=== PATIENT | female | born 1970 | race Caucasian/White ===

== ENCOUNTER → 2016-09-17 | Outpatient (CLI) | payer BC ==
--- NOTE | 2016-09-18 06:42 | US ---
EXAMINATION TYPE: US pelvic complete DATE OF EXAM: 09/17/2016 COMPARISON: NONE CLINICAL HISTORY: R10.2 Pelvic pain. Pain during pelvic exam TECHNIQUE: Transabdominal (TA) Date of LMP: over a year ago. EXAM MEASUREMENTS: Uterus: 8.4 x 4.4 x 5.3 cm Endometrial Stripe: 0.4 cm Right Ovary: 2.8 x 1.5 x 2.7 cm Left Ovary: 3.9 x 2.4 x 2.2 cm 1. Uterus: Anteverted wnl 2. Endometrium: wnl 3. Right Ovary: wnl 4. Left Ovary: wnl 5. Bilateral Adnexa: wnl 6. Posterior cul-de-sac: no free fluid IMPRESSION: NORMAL PELVIC ULTRASOUND.
== END | disposition home or self-care (01) ==
LOC: RADUSWWP 16:01
PROVIDERS: ATTEND General Practice
DX: R10.2 Pelvic and perineal pain (principal)
CPT/HCPCS: 76856

== ENCOUNTER → 2018-08-23 | Outpatient (CLI) | payer OTHER ==
--- NOTE | 2018-08-24 10:46 | MM ---
Reason for exam: screening (asymptomatic). Last mammogram was performed 4 years and 3 months ago. Physical Findings: A clinical breast exam by your physician is recommended on an annual basis and results should be correlated with mammographic findings. MG Screening Mammo w CAD Bilateral CC and MLO view(s) were taken. Prior study comparison: June 05, 2014, bilateral MG screening mammo w CAD. There are scattered fibroglandular densities. There is a stable right anterior depth upper outer quadrant mass and left upper outer quadrant focal asymmetry. There is a benign right oil cyst. No suspicious abnormality. No significant changes when compared with prior studies. ASSESSMENT: Benign, BI-RAD 2 RECOMMENDATION: Routine screening mammogram of both breasts in 1 year.
== END | disposition home or self-care (01) ==
LOC: RADMAMWWP 07:32
PROVIDERS: ATTEND General Practice
DX: Z12.31 Encounter for screening mammogram for malignant neoplasm of breast (principal)
CPT/HCPCS: 77067

== ENCOUNTER 2018-09-13 09:55 | Day surgery (SDC) | payer OTHER ==
[2018-09-11 11:09] VITALS: BMI 33.7
[~2018-09-13 09:55] MED LIST: LACTATED RINGERS 1,000 ML IV SCH; LIDOCAINE 1% 20 ML VIAL (10MG/ML) FOR IV START INTRADERMA PRN
[2018-09-13 10:19] VITALS: TEMP 98.7
[2018-09-13] MEDS ORDERED: LIDOCAINE 1% INJ 10MG/ML (20 ML MDV) ONE (10:46)
[2018-09-13] MEDS ORDERED: PROPOFOL 10 MG/ML 20 ML VIAL IV ONE (10:46)
--- NOTE | 2018-09-13 11:10 | P.PCN ---
Date of Procedure: 09/13/18 Procedure(s) Performed: BRIEF HISTORY: Patient is a 48-year-old pleasant white female, scheduled for an elective colonoscopy as a part of screening for colorectal neoplasia. PROCEDURE PERFORMED: Colonoscopy with snare polypectomy. PREOPERATIVE DIAGNOSIS: Screening for colon cancer. IV sedation per Anesthesia. PROCEDURE: After informed consent was obtained, the patient, was brought into the endoscopy unit. IV sedation was administered by Anesthesia under continuous monitoring. Digital rectal examination was normal. Initially the Olympus CF-160 flexible video colonoscope was then inserted in the rectum, gradually advanced into the cecum without any difficulty. Careful examination was performed as the scope was gradually being withdrawn. Ileocecal valve and the appendiceal orifice were visualized and appeared normal. Prep was excellent. Mucosa of the cecum, ascending colon, transverse colon, appeared normal. In the descending colon there was a 1.5 cm broad-based polyp that was removed by snare polypectomy. Rest of the descending colon, sigmoid colon, and rectum appeared normal. Scat tered sigmoid diverticulosis. Retroflexion was performed in the rectum and no lesions were seen. The patient tolerated the procedure well. IMPRESSION: 1.5 cm broad-based ascending colon polyp status post polypectomy Scattered sigmoid diverticulosis RECOMMENDATIONS: Findings of this examination were discussed with the patient as well as her family. She was advised to follow with the biopsy results. If the biopsy shows an adenoma, she can have a repeat colonoscopy in 3 years.
[2018-09-13 11:19] VITALS: BP 95/65; PULSE 73; RESP 14
== END 2018-09-13 11:41 | disposition home or self-care (01) ==
LOC: ORWHC2ENDO 09:55
PROVIDERS: ATTEND Internal Medicine Gastroenterology
DX: Z12.11 Encounter for screening for malignant neoplasm of colon (principal); K63.5 Polyp of colon; K57.30 Diverticulosis of large intestine without perforation or abscess without bleeding; F17.210 Nicotine dependence, cigarettes, uncomplicated
CPT/HCPCS: 45385; 88305; 81025; J2001; J2704

== ENCOUNTER 2019-10-22 18:42 | Inpatient (IN) | payer OTHER ==
[2019-10-22] MEDS ORDERED: SODIUM CHLORIDE 0.9% 1,000 ML IV STA (19:24)
[2019-10-22] MEDS ORDERED: ONDANSETRON 4 MG/2 ML VIAL IVP STA (19:38)
[2019-10-22] MEDS ORDERED: KETOROLAC 15 MG/ML 1 ML VIAL IVP STA (19:38)
--- NOTE | 2019-10-22 19:39 | ED ---
Abdominal Pain HPI - General Source: patient Mode of arrival: ambulatory Limitations: no limitations <Geraldo Nassar - Last Filed: 10/22/19 21:53> <Leslie Perera - Last Filed: 10/26/19 00:28> - General Chief Complaint: Abdominal Pain Stated Complaint: Lower abd pain Time Seen by Provider: 10/22/19 18:59 - History of Present Illness Initial Comments: Patient 21-year-old female presenting to emergency with chief complaint of abdominal pain. Patient reports one week ago she was diagnosed with a urinary tract infection and started Cipro. Patient states she'll for she is taken 7 doses of the ciprofloxacin. Patient reports she continues to have suprapubic abdominal pain and is now noticed gross hematuria over the last few days. She denies dysuria, increased urgency or frequency. Denies any hematochezia or melena. States she does have history of kidney stones but this does not feel like it. Does report nausea, no vomiting. Denies night sweats fevers or chills. No previous history of abdominal surgeries. (Geraldo Nassar) - Related Data Home Medications Medication Instructions Recorded Confirmed Ciprofloxacin HCl [Cipro] 500 mg PO BID 10/22/19 10/22/19 Allergies Allergy/AdvReac Type Severity Reaction Status Date / Time No Known Allergies Allergy Verified 10/22/19 22:40 Review of Systems ROS Other: All systems not noted in ROS Statement are negative. <Geraldo Nassar - Last Filed: 10/22/19 21:53> ROS Other: All systems not noted in ROS Statement are negative. <Leslie Perera - Last Filed: 10/26/19 00:28> ROS Statement: Those systems with pertinent positive or pertinent negative responses have been documented in the HPI. Past Medical History Past Medical History: No Reported History Additional Past Medical History / Comment(s): loose stools after eating History of Any Multi-Drug Resistant Organisms: None Reported Past Surgical History: No Surgical Hx Reported Additional Past Surgical History / Comment(s): surgery for ectopic Past Anesthesia/Blood Transfusion Reactions: No Reported Reaction Past Psychological History: No Psychological Hx Reported Smoking Status: Current every day smoker Past Alcohol Use History: Rare Past Drug Use History: None Reported - Past Family History Mother Family Medical History: Cancer Brother(s) Family Medical History: Cancer Additional Family Medical History / Comment(s): brain cancer <Geraldo Nassar - Last Filed: 10/22/19 21:53> General Exam Limitations: no limitations General appearance: alert, in no apparent distress, obese Head exam: Present: atraumatic, normocephalic, normal inspection Eye exam: Present: normal appearance, PERRL, EOMI Pupils: Present: normal accommodation ENT exam: Present: normal exam, normal oropharynx, mucous membranes moist, TM's normal bilaterally, normal external ear exam Neck exam: Present: normal inspection, full ROM. Absent: tenderness Respiratory exam: Present: normal lung sounds bilaterally. Absent: respiratory distress, wheezes, rales Cardiovascular Exam: Present: regular rate, normal rhythm, normal heart sounds GI/Abdominal exam: Present: soft, tenderness (Left and midline suprapubic tenderness). Absent: distended, guarding, rebound, rigid Extremities exam: Present: normal inspection, full ROM, normal capillary refill. Absent: tenderness Back exam: Present: normal inspection, full ROM. Absent: tenderness, CVA tenderness (R), CVA tenderness (L) Neurological exam: Present: alert, oriented X3 Psychiatric exam: Present: normal affect, normal mood Skin exam: Present: warm, dry, intact, normal color <Geraldo Nassar - Last Filed: 10/22/19 21:53> Course Vital Signs 10/22/19 10/22/19 18:44 22:15 Temperature 98.3 F 99.2 F Pulse Rate 101 H 84 Respiratory 18 17 Rate Blood Pressure 157/81 137/88 O2 Sat by Pulse 98 95 Oximetry Medical Decision Making - Lab Data Result diagrams: 10/22/19 19:42 10/22/19 19:42 <Geraldo Nassar - Last Filed: 10/22/19 21:53> - Lab Data Result diagrams: 10/25/19 06:19 10/25/19 06:19 <Leslie Perera - Last Filed: 10/26/19 00:28> - Medical Decision Making Patient 49-year-old female presenting to the emergency department with a chief c omplaint of abdominal pain. On exam she has no CVA tenderness with a 7 left lower quadrant abdominal pain. UA does show hematuria but no signs of a UTI. Patient has been taking ciprofloxacin is currently on day 7. Patient has leukocytosis of 16.5 K. CMP unremarkable. UA showed elevated red blood cells and moderate amounts of blood but no signs of urinary tract infection. Urine culture pending. CT of abdomen and pelvis reveals diverticulitis in the mid to distal sigmoid colon. There is also moderate to severe inflammation with an intramural abscess. Patient will be started on Flagyl and Zosyn. Patient will be admitted for further medical management. Her pain is controlled. Nothing by mouth. Case discussed with Dr Kidd. Admitting physician is General surgery on consult (Geraldo Nassar) I was available for consultation in the emergency department. The history and physical exam were done by the midlevel provider. I was consulted for this patients care. I reviewed the case with the midlevel provider and based on their presentation of the patient, I agree with the assessment, medical decision making and plan of care as documented. Patient was signed out to me, not Dr. Kidd. I discussed case with Dr. Harden who agreed to admit the patient. Chart was dictated using [facility] dictation software. Attempts were made to correct any dictation errors however some typographical errors may persist. Patient was seen during a national state of emergency due to the Covid-19 pandemic. (Leslie Perera) - Lab Data Lab Results 10/22/19 10/22/19 10/22/19 Range/Units 19:42 19:42 19:42 WBC 16.7 H (3.8-10.6) k/uL RBC 4.75 (3.80-5.40) m/uL Hgb 14.4 (11.4-16.0) gm/dL Hct 44.0 (34.0-46.0) % MCV 92.7 (80.0-100.0) fL MCH 30.3 (25.0-35.0) pg MCHC 32.7 (31.0-37.0) g/dL RDW 12.6 (11.5-15.5) % Plt Count 344 (150-450) k/uL Neutrophils % 81 % Lymphocytes % 9 % Monocytes % 7 % Eosinophils % 1 % Basophils % 0 % Neutrophils # 13.6 H (1.3-7.7) k/uL Lymphocytes # 1.6 (1.0-4.8) k/uL Monocytes # 1.2 H (0-1.0) k/uL Eosinophils # 0.2 (0-0.7) k/uL Basophils # 0.1 (0-0.2) k/uL Sodium 139 (137-145) mmol/L Potassium 4.5 (3.5-5.1) mmol/L Chloride 107 (98-107) mmol/L Carbon Dioxide 21 L (22-30) mmol/L Anion Gap 11 mmol/L BUN 19 H (7-17) mg/dL Creatinine 0.61 (0.52-1.04) mg/dL Est GFR (CKD-EPI)AfAm >90 (>60 ml/min/1.73 sqM) Est GFR (CKD-EPI)NonAf >90 (>60 ml/min/1.73 sqM) Glucose 115 H (74-99) mg/dL Calcium 9.3 (8.4-10.2) mg/dL Total Bilirubin 0.7 (0.2-1.3) mg/dL AST 40 H (14-36) U/L ALT 51 H (4-34) U/L Alkaline Phosphatase 116 (38-126) U/L Total Protein 7.1 (6.3-8.2) g/dL Albumin 4.0 (3.5-5.0) g/dL Amylase 46 (30-110) U/L Lipase 55 (23-300) U/L Urine Color Yellow Urine Appearance Cloudy H (Clear) Urine pH 6.5 (5.0-8.0) Ur Specific Logan 1.019 (1.001-1.035) Urine Protein Negative (Negative) Urine Glucose (UA) Negative (Negative) Urine Ketones Negative (Negative) Urine Blood Moderate H (Negative) Urine Nitrite Negative (Negative) Urine Bilirubin Negative (Negative) Urine Urobilinogen 2.0 (<2.0) mg/dL Ur Leukocyte Esterase Small H (Negative) Urine RBC >182 H (0-5) /hpf Urine WBC 14 H (0-5) /hpf Ur Squamous Epith Cells 1 (0-4) /hpf Urine Bacteria Rare H (None) /hpf Urine Mucus Few H (None) /hpf Urine Yeast (Budding) Few H (None) /hpf Urine HCG, Qual (Not Detectd) 10/22/19 Range/Units 19:42 WBC (3.8-10.6) k/uL RBC (3.80-5.40) m/uL Hgb (11.4-16.0) gm/dL Hct (34.0-46.0) % MCV (80.0-100.0) fL MCH (25.0-35.0) pg MCHC (31.0-37.0) g/dL RDW (11.5-15.5) % Plt Count (150-450) k/uL Neutrophils % % Lymphocytes % % Monocytes % % Eosinophils % % Basophils % % Neutrophils # (1.3-7.7) k/uL Lymphocytes # (1.0-4.8) k/uL Monocytes # (0-1.0) k/uL Eosinophils # (0-0.7) k/uL Basophils # (0-0.2) k/uL Sodium (137-145) mmol/L Potassium (3.5-5.1) mmol/L Chloride (98-107) mmol/L Carbon Dioxide (22-30) mmol/L Anion Gap mmol/L BUN (7-17) mg/dL Creatinine (0.52-1.04) mg/dL Est GFR (CKD-EPI)AfAm (>60 ml/min/1.73 sqM) Est GFR (CKD-EPI)NonAf (>60 ml/min/1.73 sqM) Glucose (74-99) mg/dL Calcium (8.4-10.2) mg/dL Total Bilirubin (0.2-1.3) mg/dL AST (14-36) U/L ALT (4-34) U/L Alkaline Phosphatase (38-126) U/L Total Protein (6.3-8.2) g/dL Albumin (3.5-5.0) g/dL Amylase (30-110) U/L Lipase (23-300) U/L Urine Color Urine Appearance (Clear) Urine pH (5.0-8.0) Ur Specific Logan (1.001-1.035) Urine Protein (Negative) Urine Glucose (UA) (Negative) Urine Ketones (Negative) Urine Blood (Negative) Urine Nitrite (Negative) Urine Bilirubin (Negative) Urine Urobilinogen (<2.0) mg/dL Ur Leukocyte Esterase (Negative) Urine RBC (0-5) /hpf Urine WBC (0-5) /hpf Ur Squamous Epith Cells (0-4) /hpf Urine Bacteria (None) /hpf Urine Mucus (None) /hpf Urine Yeast (Budding) (None) /hpf Urine HCG, Qual Not Detected (Not Detectd) Disposition Is patient prescribed a controlled substance at d/c from ED?: No Time of Disposition: 21:58 <Geraldo Nassar - Last Filed: 10/22/19 21:53> <Leslie Perera - Last Filed: 10/26/19 00:28> Clinical Impression: Diverticulitis of intestine with abscess, Hematuria, Abdominal pain Disposition: ADMITTED IP TO THIS HOSP Condition: Good
[2019-10-22 19:58] LABS: Appearance,Urine Cloudy (Clear); Bacteria,Urine Rare /hpf; Bilirubin,Urine Negative (Negative); Blood,Urine Moderate (Negative); Budding Yeast,Urine Few /hpf; Color,Urine Yellow; Glucose,Urine (UA) Negative (Negative); Ketones,Urine Negative (Negative); Leukocyte Esterase,Urine Small (Negative); Mucus,Urine Few /hpf; Nitrite,Urine Negative (Negative); PH, Urine 6.5 (5.0-8.0); Protein,Urine Negative (Negative); RBC,Urine >182 /hpf (0-5); Specific Gravity,Urine 1.019 (1.001-1.035); Squamous Epithelial Cell,Urine 1 /hpf (0-4); WBC,Urine 14 /hpf (0-5)
[2019-10-22 20:01] LABS: ALT 51 U/L (4-34); AST 40 U/L (14-36); African American GFR (CKD) >90 (>60 ml/min/1.73 sqM); Alkaline Phosphatase 116 U/L (38-126); Amylase 46 U/L (30-110); Anion Gap 11 mmol/L; Blood Urea Nitrogen 19 mg/dL (7-17); Calcium 9.3 mg/dL (8.4-10.2); Carbon Dioxide 21 mmol/L (22-30); Chloride 107 mmol/L (98-107); Glucose 115 mg/dL (74-99); Non-African American GFR(CKD) >90 (>60 ml/min/1.73 sqM); Potassium 4.5 mmol/L (3.5-5.1); Sodium 139 mmol/L (137-145); Total Bilirubin 0.7 mg/dL (0.2-1.3); Total Protein 7.1 g/dL (6.3-8.2)
[2019-10-22 20:04] LABS: Basophils # (A) 0.1 k/uL (0-0.2); Basophils % (A) 0 %; Eosinophils # (A) 0.2 k/uL (0-0.7); Eosinophils % (A) 1 %; HGB 14.4 gm/dL (11.4-16.0); Lymphocytes # (A) 1.6 k/uL (1.0-4.8); Lymphocytes % (A) 9 %; MCH 30.3 pg (25.0-35.0); MCHC 32.7 g/dL (31.0-37.0); MCV 92.7 fL (80.0-100.0); Mean Platelet Volume 8.2; Monocytes # (A) 1.2 k/uL (0-1.0); Monocytes % (A) 7 %; Neutrophils # (A) 13.6 k/uL (1.3-7.7); Neutrophils % (A) 81 %; Platelet Count 344 k/uL (150-450); RBC 4.75 m/uL (3.80-5.40); RDW 12.6 % (11.5-15.5); WBC 16.7 k/uL (3.8-10.6)
--- NOTE | 2019-10-22 21:31 | CT ---
EXAMINATION TYPE: CT abdomen pelvis w con DATE OF EXAM: 10/22/2019 COMPARISON: NONE HISTORY: 49-year-old female left lower quadrant and Pelvic pain TECHNIQUE: Contiguous axial scanning of the abdomen and pelvis following administration of 100 ml Iso amita 300 IV contrast. Delayed images through the kidneys and coronal/sagittal reconstructions perform ed. CT DLP: 1660.9 mGycm Automated exposure control for dose reduction was used. FINDINGS: Heart normal size without pericardial effusion. Liver enlarged at 22.1 cm. Suspect underlying mild fatty infiltration. There is a 1.6 cm calculus in the gallbladder neck region and gallbladder hydrops and 5.4 cm wide. No surrounding inflammation at this time. Portal venous system is patent. No biliary ductal dilatation. Right adrenal gland, right kidney, spleen, and pancreas appear within normal limits. There is a round 2.1 cm low-density homogeneous nodule within the left adrenal gland, suspected adren al adenoma. There is a 1.4 cm calculus in the pelvis of the left kidney with mild fullness of the left renal meaghan ecting system. No dilated small bowel, free fluid, or free air. No mesenteric or retroperitoneal lymphadenopathy. Normal appendix. Sigmoid diverticulosis. Moderate to severe wall thickening and moderate surrounding mesenteric fat st randing along the mid to distal sigmoid. There is intramural fluid along the right lateral wall of th e distal sigmoid measuring 3.1 x 1.7 cm on axial image 83. No free air is identified. Mild free fluid in the left adnexa just underneath the inflamed segment of sigmoid colon. Bladder is collapsed. Uterus anteverted. Right ovary is visualized. Left ovary obscured by adjacent b owel. No pelvic lymphadenopathy. Bones: Osteitis pubis. Mild degenerative change of the hips. No osseous destructive process. IMPRESSION: 1. SIGMOID DIVERTICULOSIS WITH EXAM POSITIVE FOR ACUTE DIVERTICULITIS ALONG THE MID TO DISTAL SIGMOID . THERE IS MODERATE TO SEVERE INFLAMMATION AND A 3.1 X 1.7 CM INTRAMURAL ABSCESS NOTED. SOME LEFT ADN EXAL FREE FLUID JUST ADJACENT LIKELY REACTIVE TO THE INFLAMMATION. DIRECT VISUALIZATION RECOMMENDED A FTER SUCCESSFUL TREATMENT. 2. HYDROPIC GALLBLADDER WITH A 1.6 CM GALLBLADDER NECK CALCULUS. HYDROPIC CHANGES MAY RELATE TO FASTI NG STATE. BUT GIVEN THE STONE AT THE NECK OF THE GALLBLADDER, PATIENT SHOULD BE FOLLOWED TO EXCLUDE E CASS DEVELOPING ACUTE CHOLECYSTITIS. 3. A 1.4 CM CALCULUS IN THE LEFT RENAL PELVIS MAY RESULT IN AN IMPENDING UPJ OBSTRUCTION. 4. A 2.1 CM ROUND HOMOGENEOUS MASS WITHIN THE LEFT ADRENAL GLAND, SUSPECTED ADRENAL ADENOMA. SIX-LIAM H FOLLOW-UP ADRENAL MASS PROTOCOL CT RECOMMENDED TO FURTHER EVALUATE. 5. HEPATOMEGALY AT 22.1 CM.
[2019-10-22] MEDS ORDERED: PIPERACILLIN-TAZOBACTAM 3.375 GM in SODIUM CHLORIDE 0.9% 100 ML IVPB STA (21:53)
[2019-10-22] MEDS ORDERED: metroNIDAZOLE-NS PMX 500 MG in SALINE 1 100ML.BAG IVPB STA (21:53)
[2019-10-22] MEDS ORDERED: NALOXONE 0.4 MG/ML 1 ML VIAL IV PRN (21:59)
[2019-10-22] MEDS ORDERED: LORazepam 2 MG/ML INJ IV PRN (21:59)
[2019-10-22] MEDS ORDERED: HYDROmorphone 1 MG/ML 1 ML SYRINGE IVP PRN (21:59)
[2019-10-22 22:38] LABS: Partial Thromboplastin Time 28.6 sec (22.0-30.0); Prothrombin Time 10.3 sec (9.0-12.0)
[2019-10-22] MEDS: SODIUM CHLORIDE 0.9% 1,000 ML IV SCH (23:35)
--- NOTE | 2019-10-23 03:15 | P.HPIM ---
History of Present Illness H&P Date: 10/22/19 Chief Complaint: abd pain 49-year-old female with no significant past medical history Patient comes in with two-week history of abdominal pain off and on she described it as sharp colicky abdominal pain over the lower part of her abdomen gets worse with movement has been going on and getting worse over the past 2 weeks she just her PCP who prescribed her some Cipro for possible UTI she still taking it. She reports some chills but denies any nausea vomiting denies any d iarrhea denies any GI bleeding denies any vaginal discharge. She is tolerating by mouth intake. However today she felt that the pain is getting worse she got back from work slept for 2 hours pain awaken her and decided to come to the hospital for evaluation as despite taking the antibiotics she wasn't getting any relief or improvement. She denies any recent traveling or sick contacts denies any similar symptoms in the past. In the ED she was found to have leukocytosis, CT of the abdomen revealed sigmoid diverticulosis with acute diverticulitis and 3 x 1.5 cm abscess formation patient also found to have hydropic gallbladder with 1.6 cm gallbladder neck calculus, also she was found to have 1.4 cm stone in the left renal pelvis and adrenal adenoma suspected recommending follow-up Review of Systems Pertinent positives as noted in HPI. All other systems were reviewed and are negative Past Medical History Past Medical History: No Reported History Additional Past Medical History / Comment(s): loose stools after eating History of Any Multi-Drug Resistant Organisms: None Reported Past Surgical History: No Surgical Hx Reported Additional Past Surgical History / Comment(s): surgery for ectopic Past Anesthesia/Blood Transfusion Reactions: No Reported Reaction Past Psychological History: No Psychological Hx Reported Smoking Status: Current every day smoker Past Alcohol Use History: Rare Additional Past Alcohol Use History / Comment(s): smoker for 25 years 1 ppd Past Drug Use History: None Reported - Past Family History Mother Family Medical History: Cancer Additional Family Medical History / Comment(s): stomach Brother(s) Family Medical History: Cancer Additional Family Medical History / Comment(s): brain cancer Father Family Medical History: CVA/TIA Medications and Allergies Home Medications Medication Instructions Recorded Confirmed Type Ciprofloxacin HCl [Cipro] 500 mg PO BID 10/22/19 10/22/19 History Allergies Allergy/AdvReac Type Severity Reaction Status Date / Time No Known Allergies Allergy Verified 10/22/19 22:40 Physical Exam Vitals: Vital Signs Temp Pulse Pulse Resp BP BP Pulse Ox 10/22/19 23:00 98.1 F 86 16 160/91 97 10/22/19 22:15 99.2 F 84 17 137/88 95 10/22/19 18:44 98.3 F 101 H 18 157/81 98 Intake and Output 10/22/19 10/22/19 10/23/19 14:59 22:59 06:59 Other: Weight 102.965 kg 102.965 kg Constitutional: No acute distress, conversant, pleasant Eyes: Anicteric sclerae, moist conjunctiva, Pupils equal round reactive to light ENMT: NC/AT Oropharynx clear, no erythema, exudates Neck: Supple, FROM, no masses, or JVD No carotid bruits No thyromegaly Lungs: Clear to auscultation Clear to percussion Normal respiratory effort, no accessory muscle use Cardiovascular: Heart regular in rate and rhythm, No murmurs, gallops, or rubs No peripheral edema Abdominal: Soft Slight tenderness to deep palpation over the left lower quadrant, no guarding, rebound or rigidity Abdomen moving with respiration Normoactive bowel sounds No hepatomegaly, No splenomegaly No palpable mass No abdominal wall hernia noted Skin: Normal temperature, tone, texture, turgor No induration No subcutaneous nodules No rash, lesions No ulcers Extremities: No digital cyanosis No clubbing Pedal pulses intact and symmetrical Radial pulses intact and symmetrical No calf tenderness Psychiatric: Alert and oriented to person, place and time Appropriate affect fair judgement Neuro Muscles Strength 5/5 in all 4 extremities Sensation to light touch grossly present throughout Cranial nerves II-XII grossly intact No focal sensory deficits Lymphatics: no palpable cervical or supraclavicular , or inguinal lymph nodes Results CBC & Chem 7: 10/22/19 19:42 10/22/19 19:42 Labs: Abnormal Lab Results - Last 24 Hours (Table) 10/22/19 10/22/19 10/22/19 Range/Units 19:42 19:42 19:42 WBC 16.7 H (3.8-10.6) k/uL Neutrophils # 13.6 H (1.3-7.7) k/uL Monocytes # 1.2 H (0-1.0) k/uL Carbon Dioxide 21 L (22-30) mmol/L BUN 19 H (7-17) mg/dL Glucose 115 H (74-99) mg/dL AST 40 H (14-36) U/L ALT 51 H (4-34) U/L Urine Appearance Cloudy H (Clear) Urine Blood Moderate H (Negative) Ur Leukocyte Esterase Small H (Negative) Urine RBC >182 H (0-5) /hpf Urine WBC 14 H (0-5) /hpf Urine Bacteria Rare H (None) /hpf Urine Mucus Few H (None) /hpf Urine Yeast (Budding) Few H (None) /hpf Microbiology - Last 24 Hours (Table) 10/22/19 19:42 Urine Culture - Preliminary Urine,Voided Thrombosis Risk Factor Assmnt - Choose All That Apply Any of the Below Risk Factors Present?: Yes Each Factor Represents 1 point: Age 41-60 years, Obesity (BMI >25) Other Risk Factors: No Other congenital or acquired thrombophilia - If yes, enter type in comment: No Thrombosis Risk Factor Assessment Total Risk Factor Score: 2 Thrombosis Risk Factor Assessment Level: Low Risk Assessment and Plan Assessment: Sepsis secondary to acute diverticulitis with abscess formation Nothing by mouth IV fluid hydration Pain control Antibiotics with Zosyn and Flagyl Surgery consultation, also to evaluate hydropic gallbladder with gallbladder neck calculus Incidental finding of the following onset scan of the abdomen Hepatomegaly Adenoma of the left adrenal gland recommending follow-up in 6 months with adrenal mass protocol CAT scan Left renal pelvic stone Hydropic gallbladder with gallbladder neck calculus CODE STATUS: Full code DVT prophylaxis: Heparin subcu 3 times a day Discussed with: Patient, ER, RN Anticipated length of stay more than [address]: Home A total of 75 minutes was spent on the care of this complex patient more than 50% of the time was spent in counseling and care coordination.
[2019-10-23] MEDS: ONDANSETRON 4 MG/2 ML VIAL IVP PRN ×2 (04:36→19:57)
[2019-10-23] MEDS: HYDROmorphone 0.5 MG/0.5 ML SYRINGE IVP PRN ×6 (04:37→23:10)
[2019-10-23] MEDS: metroNIDAZOLE-NS PMX 500 MG in SALINE 1 100ML.BAG IVPB SCH ×3 (09:15→23:12)
[2019-10-23] MEDS: HEPARIN SODIUM,PORCINE 5,000 UNIT/ML 1 ML VIAL SQ SCH ×3 (09:15→23:14)
[2019-10-23] MEDS: PIPERACILLIN-TAZOBACTAM 3.375 GM in SODIUM CHLORIDE 0.9% 100 ML IVPB SCH ×2 (09:16→16:20)
--- NOTE | 2019-10-23 10:40 | P.PN ---
Subjective Progress Note Date: 10/23/19 HISTORY OF PRESENT ILLNESS Patient comes in with two-week history of abdominal pain off and on she described it as sharp colicky abdominal pain over the lower part of her abdomen gets worse with movement has been going on and getting worse over the past 2 weeks she just her PCP who prescribed her some Cipro for possible UTI she still taking it. She reports some chills but denies any nausea vomiting denies any diarrhea denies any GI bleeding denies any vaginal discharge. She is tolerating by mouth intake. However today she felt that the pain is getting worse she got back from work slept for 2 hours pain awaken her and decided to come to the hospital for evaluation as despite taking the antibiotics she wasn't getting any relief or improvement. She denies any recent traveling or sick contacts denies any similar symptoms in the past. In the ED she was found to have leukocytosis, CT of the abdomen revealed sigmoid diverticulosis with acute diverticulitis and 3 x 1.5 cm abscess formation patient also found to have hydropic gallbladder with 1.6 cm gallbladder neck calculus, also she was found to have 1.4 cm stone in the left renal pelvis and adrenal adenoma suspected recommending follow-up 10/22: The patient is seen in follow-up today. Care has been transitioned to our service as we cover for Dr. Joann Renee. Patient has consult in place with Dr. Collins and Dr. Drwe. She is currently on Zosyn and Flagyl. She is also nothing by mouth. She's been afebrile, heart rate 89, blood pressure 126/73 pulse ox 95% on room air. Patient complains of continued abdominal pain in the lower quadrants. A repeat blood work will be ordered for tomorrow, urine and bl ood cultures are in progress. REVIEW OF SYSTEMS Constitutional: No fever, no chills, no night sweats. No weight change. Reports weakness, fatigue. No daytime sleepiness. EENT: No headache. No blurred vision or double vision, no loss of vision. No dizziness. No nasal drainage or congestion. No epistaxis. No sore throat. Lungs: No shortness of breath, cough, no sputum production. No wheezing. Cardiovascular: No chest pain, no lower extremity edema. No palpitations. No paroxysmal nocturnal dyspnea. No orthopnea. No lightheadedness or dizziness. No syncopal episodes. Abdominal: Reports abdominal pain. No nausea, vomiting. No diarrhea. No constipation. No bloody or tarry stools reports loss of appetite. Genitourinary: Reports dysuria, increased frequency, urgency. No urinary retention. Musculoskeletal: No myalgias. No muscle weakness, no gait dysfunction, no frequent falls. No back pain. No neck pain. Integumentary: No wounds, no lesions. No rash or pruritus. No unusual bruising. No change in hair or nails. Neurologic: No aphasia. No facial droop. No change in mentation. No head injury. No headache. No paralysis. No paresthesia. Psychiatric: No depression. No anxiety. No mood swings. Endocrine: No abnormal blood sugars. No weight change. PHYSICAL EXAMINATION Gen: This is a 49-year-old female. Patient is resting in bed and appears to be comfortable and in no acute distress. HEENT: Head is atraumatic, normocephalic. Pupils equal, round. Sclerae is anicteric. NECK: Supple. No JVD. No lymphadenopathy. No thyromegaly. LUNGS: Clear to auscultation. No wheezes or rhonchi. No intercostal ret ractions. HEART: Regular rate and rhythm. No murmur. ABDOMEN: Soft. Bowel sounds are present. No masses. Left lower quadrant tenderness. EXTREMITIES: No pedal edema. No calf tenderness. Dorsalis pedis +2 bilaterally. NEUROLOGICAL: Patient is awake, alert and oriented x3. Cranial nerves 2 through 12 are grossly intact. ASSESSMENT AND PLAN 1. Sepsis secondary to acute diverticulitis with abscess formation. Patient is currently nothing by mouth, continue IV fluids, continue current pain medicine. Continue Zosyn and Flagyl. Zofran as needed for nausea. Consults in place with infectious disease and general surgery. 2. Hydropic gallbladder with gallbladder neck calculus. Consult with Dr. Drew. 3. Hepatomegaly. 4. Adenoma of the left adrenal gland, recommend follow-up in 6 months. 5. DVT prophylaxis. Heparin subcu. 6. GI prophylaxis. Protonix. Discharge plan: home Impression and plan of care have been directed as dictated by the signing maite wilson. Siobhan Novak nurse practitioner acting as scribe for signing physician. Objective - Vital Signs Vital signs: Vital Signs Temp 98.7 F 10/23/19 04:11 Pulse 84 10/23/19 04:11 Resp 16 10/22/19 23:00 BP 126/73 10/23/19 04:11 Pulse Ox 95 10/23/19 04:11 Intake & Output 10/22/19 10/23/19 10/23/19 18:59 06:59 18:59 Weight 102.965 kg 102.965 kg Other: # Voids 2 - Labs CBC & Chem 7: 10/22/19 19:42 10/22/19 19:42 Labs: Abnormal Lab Results - Last 24 Hours (Table) 10/22/19 10/22/19 10/22/19 Range/Units 19:42 19:42 19:42 WBC 16.7 H (3.8-10.6) k/uL Neutrophils # 13.6 H (1.3-7.7) k/uL Monocytes # 1.2 H (0-1.0) k/uL Carbon Dioxide 21 L (22-30) mmol/L BUN 19 H (7-17) mg/dL Glucose 115 H (74-99) mg/dL AST 40 H (14-36) U/L ALT 51 H (4-34) U/L Urine Appearance Cloudy H (Clear) Urine Blood Moderate H (Negative) Ur Leukocyte Esterase Small H (Negative) Urine RBC >182 H (0-5) /hpf Urine WBC 14 H (0-5) /hpf Urine Bacteria Rare H (None) /hpf Urine Mucus Few H (None) /hpf Urine Yeast (Budding) Few H (None) /hpf Microbiology - Last 24 Hours (Table) 10/22/19 19:42 Urine Culture - Preliminary Urine,Voided
[2019-10-23] MEDS: SODIUM CHLORIDE 0.9% 1,000 ML IV SCH ×2 (12:38→19:42)
--- NOTE | 2019-10-23 12:55 | P.GSCN ---
<Guera Juarez - Last Filed: 10/23/19 12:35> History of Present Illness Consult date: 10/23/19 History of present illness: CHIEF COMPLAINT: Left lower quadrant abdominal pain HISTORY OF PRESENT ILLNESS: This is a 49-year-old female with a known history of diverticulosis, colon polyp and last colonoscopy in August 2018. She presents to the emergency room with complaints of abdominal pain for the past 2 weeks. Pain is mostly in the left lower quadrant and radiates to the mid abdomen. She r eports being on Cipro outpatient her PCP initially it started treated for UTI and kidney infection. Patient had no improvement with her abdominal pain with antibiotics. She's also been having some nausea. She will reports having hard stool. White count elevated at 16.7. She had a computed tomography scan of the abdomen showing sigmoid diverticulosis with acute diverticulitis along the mid to distal sigmoid. There is moderate to severe inflammation and a 3.1 x 1.7 cm intramural abscess noted. Hydropic gallbladder with a 1.6 cm gallbladder neck calculus. Patient admits to having some nausea and chills. She denies any fever. She denies any right upper quadrant pain. Denies any pain after eating. PAST MEDICAL HISTORY: See list. PAST SURGICAL HISTORY: See list. MEDICATIONS: See list. ALLERGIES: See list. SOCIAL HISTORY: No illicit drug use. REVIEW OF SYSTEMS: CONSTITUTIONAL: Denies fever or chills. HEENT: Denies blurred vision, vision changes, or eye pain. Denies hemoptysis CARDIOVASCULAR: Denies chest pain or pressure. RESPIRATORY: No shortness of breath. GASTROINTESTINAL: See HPI for pertinent findings HEMATOLOGIC: Denies bleeding disorders. GENITOURINARY: Denies any blood in urine or increased urinary frequency. SKIN: Denies pruitis. Denies rash. PHYSICAL EXAM: VITAL SIGNS: Reviewed GENERAL: Well-developed in no acute distress. HEENT: No sclera icterus. Extraocular movements grossly intact. Moist buccal mucosa. Head is atraumatic, normocephalic. No nasal drainage. ABDOMEN: Soft. Tenderness to palpation in the left lower quadrant. Nondisten ded NEUROLOGIC: Alert and oriented. Cranial nerves II through XII grossly intact. LABORATORY DATA: WBC 16.7 lactic 0.8 AST 40 ALT 51 IMAGING: Computed tomography scan of pelvis and abdomen showing sigmoid diverticulosis with positive acute diverticulitis along the mid to distal sigmoid. Moderate to severe inflammation and a 3.1 x 1.7 cm intramural abscess noted. Some left adnexal free fluid just adjacent likely reactive to the inflammation. Hydropic gallbladder with 1.6 cm gallbladder neck calculus. Atrophic changes may relate to fasting state. ASSESSMENT: 1. Acute diverticulitis with abscess 2. Hydropic gallbladder with 1.6 cm gallbladder neck calculus PLAN: -Continue IV antibiotics -Advance diet to a clear liquid diet -No surgical intervention planned at this time Thank you for this consultation. Physician Quick Print Operator note has been reviewed by physician. Signing provider agrees with the documented findings, assessment, and plan of care. Past Medical History Past Medical History: No Reported History Additional Past Medical History / Comment(s): loose stools after eating History of Any Multi-Drug Resistant Organisms: None Reported Past Surgical History: No Surgical Hx Reported Additional Past Surgical History / Comment(s): surgery for ectopic Past Anesthesia/Blood Transfusion Reactions: No Reported Reaction Past Psychological History: No Psychological Hx Reported Smoking Status: Current every day smoker Past Alcohol Use History: Rare Additional Past Alcohol Use History / Comment(s): smoker for 25 years 1 ppd Past Drug Use History: None Reported - Past Family History Mother Family Medical History: Cancer Additional Family Medical History / Comment(s): stomach Brother(s) Family Medical History: Cancer Additional Family Medical History / Comment(s): brain cancer Father Family Medical History: CVA/TIA Medications and Allergies Home Medications Medication Instructions Recorded Confirmed Type Ciprofloxacin HCl [Cipro] 500 mg PO BID 10/22/19 10/22/19 History Allergies Allergy/AdvReac Type Severity Reaction Status Date / Time No Known Allergies Allergy Verified 10/22/19 22:40 Surgical - Exam Vital Signs Temp Pulse Resp BP Pulse Ox 98.3 F 101 H 18 157/81 98 10/22/19 18:44 10/22/19 18:44 10/22/19 18:44 10/22/19 18:44 10/22/19 18:44 Results - Labs 10/22/19 19:42 10/22/19 19:42 Abnormal Lab Results - Last 24 Hours (Table) 10/22/19 10/22/19 10/22/19 Range/Units 19:42 19:42 19:42 WBC 16.7 H (3.8-10.6) k/uL Neutrophils # 13.6 H (1.3-7.7) k/uL Monocytes # 1.2 H (0-1.0) k/uL Carbon Dioxide 21 L (22-30) mmol/L BUN 19 H (7-17) mg/dL Glucose 115 H (74-99) mg/dL AST 40 H (14-36) U/L ALT 51 H (4-34) U/L Urine Appearance Cloudy H (Clear) Urine Blood Moderate H (Negative) Ur Leukocyte Esterase Small H (Negative) Urine RBC >182 H (0-5) /hpf Urine WBC 14 H (0-5) /hpf Urine Bacteria Rare H (None) /hpf Urine Mucus Few H (None) /hpf Urine Yeast (Budding) Few H (None) /hpf Microbiology - Last 24 Hours (Table) 10/22/19 19:42 Urine Culture - Preliminary Urine,Voided Diabetes panel 10/22/19 Range/Units 19:42 Sodium 139 (137-145) mmol/L Potassium 4.5 (3.5-5.1) mmol/L Chloride 107 (98-107) mmol/L Carbon Dioxide 21 L (22-30) mmol/L BUN 19 H (7-17) mg/dL Creatinine 0.61 (0.52-1.04) mg/dL Glucose 115 H (74-99) mg/dL Calcium 9.3 (8.4-10.2) mg/dL AST 40 H (14-36) U/L ALT 51 H (4-34) U/L Alkaline Phosphatase 116 (38-126) U/L Total Protein 7.1 (6.3-8.2) g/dL Albumin 4.0 (3.5-5.0) g/dL Calcium panel 10/22/19 Range/Units 19:42 Calcium 9.3 (8.4-10.2) mg/dL Albumin 4.0 (3.5-5.0) g/dL Pituitary panel 10/22/19 Range/Units 19:42 Sodium 139 (137-145) mmol/L Potassium 4.5 (3.5-5.1) mmol/L Chloride 107 (98-107) mmol/L Carbon Dioxide 21 L (22-30) mmol/L BUN 19 H (7-17) mg/dL Creatinine 0.61 (0.52-1.04) mg/dL Glucose 115 H (74-99) mg/dL Calcium 9.3 (8.4-10.2) mg/dL Adrenal panel 10/22/19 Range/Units 19:42 Sodium 139 (137-145) mmol/L Potassium 4.5 (3.5-5.1) mmol/L Chloride 107 (98-107) mmol/L Carbon Dioxide 21 L (22-30) mmol/L BUN 19 H (7-17) mg/dL Creatinine 0.61 (0.52-1.04) mg/dL Glucose 115 H (74-99) mg/dL Calcium 9.3 (8.4-10.2) mg/dL Total Bilirubin 0.7 (0.2-1.3) mg/dL AST 40 H (14-36) U/L ALT 51 H (4-34) U/L Alkaline Phosphatase 116 (38-126) U/L Total Protein 7.1 (6.3-8.2) g/dL Albumin 4.0 (3.5-5.0) g/dL <Joseph Drew - Last Filed: 10/23/19 16:06> History of Present Illness History of present illness: As above. Patient with acute diverticulitis and small pericolonic abscess. Doing better at this time. CAT scan findings reviewed including the gallbladder abnormalities. Continue antibiotics. Begin clear liquid diet. Outpatient colonoscopy and cholecystectomy discussed as future plans. We'll follow closely. Surgical - Exam Vital Signs Temp Pulse Resp BP Pulse Ox 98.3 F 101 H 18 157/81 98 10/22/19 18:44 10/22/19 18:44 10/22/19 18:44 10/22/19 18:44 10/22/19 18:44 Results - Labs 10/22/19 19:42 10/22/19 19:42 Abnormal Lab Results - Last 24 Hours (Table) 10/22/19 10/22/19 10/22/19 Range/Units 19:42 19:42 19:42 WBC 16.7 H (3.8-10.6) k/uL Neutrophils # 13.6 H (1.3-7.7) k/uL Monocytes # 1.2 H (0-1.0) k/uL Carbon Dioxide 21 L (22-30) mmol/L BUN 19 H (7-17) mg/dL Glucose 115 H (74-99) mg/dL AST 40 H (14-36) U/L ALT 51 H (4-34) U/L Urine Appearance Cloudy H (Clear) Urine Blood Moderate H (Negative) Ur Leukocyte Esterase Small H (Negative) Urine RBC >182 H (0-5) /hpf Urine WBC 14 H (0-5) /hpf Urine Bacteria Rare H (None) /hpf Urine Mucus Few H (None) /hpf Urine Yeast (Budding) Few H (None) /hpf Microbiology - Last 24 Hours (Table) 10/22/19 19:42 Urine Culture - Preliminary Urine,Voided Diabetes panel 10/22/19 Range/Units 19:42 Sodium 139 (137-145) mmol/L Potassium 4.5 (3.5-5.1) mmol/L Chloride 107 (98-107) mmol/L Carbon Dioxide 21 L (22-30) mmol/L BUN 19 H (7-17) mg/dL Creatinine 0.61 (0.52-1.04) mg/dL Glucose 115 H (74-99) mg/dL Calcium 9.3 (8.4-10.2) mg/dL AST 40 H (14-36) U/L ALT 51 H (4-34) U/L Alkaline Phosphatase 116 (38-126) U/L Total Protein 7.1 (6.3-8.2) g/dL Albumin 4.0 (3.5-5.0) g/dL Calcium panel 10/22/19 Range/Units 19:42 Calcium 9.3 (8.4-10.2) mg/dL Albumin 4.0 (3.5-5.0) g/dL Pituitary panel 10/22/19 Range/Units 19:42 Sodium 139 (137-145) mmol/L Potassium 4.5 (3.5-5.1) mmol/L Chloride 107 (98-107) mmol/L Carbon Dioxide 21 L (22-30) mmol/L BUN 19 H (7-17) mg/dL Creatinine 0.61 (0.52-1.04) mg/dL Glucose 115 H (74-99) mg/dL Calcium 9.3 (8.4-10.2) mg/dL Adrenal panel 10/22/19 Range/Units 19:42 Sodium 139 (137-145) mmol/L Potassium 4.5 (3.5-5.1) mmol/L Chloride 107 (98-107) mmol/L Carbon Dioxide 21 L (22-30) mmol/L BUN 19 H (7-17) mg/dL Creatinine 0.61 (0.52-1.04) mg/dL Glucose 115 H (74-99) mg/dL Calcium 9.3 (8.4-10.2) mg/dL Total Bilirubin 0.7 (0.2-1.3) mg/dL AST 40 H (14-36) U/L ALT 51 H (4-34) U/L Alkaline Phosphatase 116 (38-126) U/L Total Protein 7.1 (6.3-8.2) g/dL Albumin 4.0 (3.5-5.0) g/dL
--- NOTE | 2019-10-23 22:51 | P.CONS ---
History of Present Illness - Reason for Consult Consult date: 10/23/19 Sigmoid diverticulitis and abscess Requesting physician: Siobhan Novak - Chief Complaint Abdominal pain 2 week - History of Present Illness Patient is a 49 year female with a past medical history "diverticulosis presenting to the ER with chief complaints of abdominal pain that has been going on for about 2 weeks now patient pain has been mostly in the left lower abdominal area, patient describing the pain to be colicky and sharp with intensity of almost out 10 of 10 in severity and some radiation to the mid abdominal area of the pain he associated nausea but no vomiting and did have some constipation and no diarrhea, patient has been evaluated in the outpatient setting by her primary care physician has been diagnosed with UTI and has been treated with oral Cipro however the patient did not have any improvement in her symptoms subsequently presented to [facility] ER yesterday patient was evaluated by the ER physician on around the the patient has been afebrile the patient did have elevated white count of 16,000, patient did have a positive UA and CT of abdominal pelvis was suggestive diverticulitis with small abscess, also with evidence of hydrops gallbladder and question of possible cholecystitis however the patient didn't have any pain in her precordial area patient was started on Zosyn has been admitted to the hospital infectious disease was consulted for further management of antibiotic therapy Review of Systems Positive point has been mentioned in the HPI rest of the systems are negative Past Medical History Past Medical History: No Reported History Additional Past Medical History / Comment(s): loose stools after eating History of Any Multi-Drug Resistant Organisms: None Reported Past Surgical History: No Surgical Hx Reported Additional Past Surgical History / Comment(s): surgery for ectopic Past Anesthesia/Blood Transfusion Reactions: No Reported Reaction Past Psychological History: No Psychological Hx Reported Smoking Status: Current every day smoker Past Alcohol Use History: Rare Additional Past Alcohol Use History / Comment(s): smoker for 25 years 1 ppd Past Drug Use History: None Reported - Past Family History Mother Family Medical History: Cancer Additional Family Medical History / Comment(s): stomach Brother(s) Family Medical History: Cancer Additional Family Medical History / Comment(s): brain cancer Father Family Medical History: CVA/TIA Medications and Allergies Home Medications Medication Instructions Recorded Confirmed Type Ciprofloxacin HCl [Cipro] 500 mg PO BID 10/22/19 10/22/19 History Allergies Allergy/AdvReac Type Severity Reaction Status Date / Time No Known Allergies Allergy Verified 10/22/19 22:40 Physical Exam Vitals: Vital Signs Temp Pulse Pulse Resp BP BP Pulse Ox 10/23/19 11:59 98.3 F 82 18 111/72 94 L 10/23/19 04:11 98.7 F 84 126/73 95 10/22/19 23:00 98.1 F 86 16 160/91 97 10/22/19 22:15 99.2 F 84 17 137/88 95 10/22/19 18:44 98.3 F 101 H 18 157/81 98 Intake and Output 10/22/19 10/23/19 10/23/19 22:59 06:59 14:59 Other: # Voids 2 Weight 102.965 kg 102.965 kg GENERAL DESCRIPTION: Middle-aged female lying in bed, no distress. No tachypnea or accessory muscle of respiration use. HEENT: Shows Pallor , no scleral icterus. Oral mucous membrane is dry. No pharyngeal erythema or thrush NECK: Trachea central, no thyromegaly. LUNGS: Unlabored breathing. Clear to auscultation anteriorly. No wheeze or crackle. HEART: S1, S2, regular rate and rhythm. No loud murmur ABDOMEN: Soft, left lower quadrant tenderness , no guarding or rigidity, no organomegaly EXTREMITIES: No edema of feet. SKIN: No rash, no masses palpable. NEUROLOGICAL: The patient is awake, alert, oriented x3, mood and affect normal. Results CBC & Chem 7: 10/22/19 19:42 10/22/19 19:42 Labs: Abnormal Lab Results - Last 24 Hours (Table) 10/22/19 10/22/19 10/22/19 Range/Units 19:42 19:42 19:42 WBC 16.7 H (3.8-10.6) k/uL Neutrophils # 13.6 H (1.3-7.7) k/uL Monocytes # 1.2 H (0-1.0) k/uL Carbon Dioxide 21 L (22-30) mmol/L BUN 19 H (7-17) mg/dL Glucose 115 H (74-99) mg/dL AST 40 H (14-36) U/L ALT 51 H (4-34) U/L Urine Appearance Cloudy H (Clear) Urine Blood Moderate H (Negative) Ur Leukocyte Esterase Small H (Negative) Urine RBC >182 H (0-5) /hpf Urine WBC 14 H (0-5) /hpf Urine Bacteria Rare H (None) /hpf Urine Mucus Few H (None) /hpf Urine Yeast (Budding) Few H (None) /hpf Microbiology - Last 24 Hours (Table) 10/22/19 19:42 Urine Culture - Preliminary Urine,Voided Assessment and Plan Assessment: 1- patient presented to hospital with abdominal pain of 2 weeks' duration most of the left lower quadrant in this patient who did have elevated white count and evidence of sigmoid diverticulitis with abdominal abscess failing outpatient oral Cipro therapy will need to cover for enteric gram-negative with the likely pathogen for this today colitis and intramural abscess 2- abnormal gallbladder on the CT but no right upper quadrant pain and no tenderness clinical doubt acute cholecystitis (1) Diverticulitis of intestine with abscess Current Visit: Yes Status: Acute Code(s): K57.80 - DVTRCLI OF INTEST, PART UNSP, W PERF AND ABSCESS W/O BLEED SNOMED Code(s): 735464498 Plan: 1- Zosyn 3.375 gm every 8 hour 2- bowel rest and IV fluid We will follow on clinical condition and cultures to further adjust medication if needed Thank you for this consultation will follow this patient with you Time with Patient: Greater than 30
[2019-10-24] MEDS: PIPERACILLIN-TAZOBACTAM 3.375 GM in SODIUM CHLORIDE 0.9% 100 ML IVPB SCH ×4 (00:24→23:25)
[2019-10-24] MEDS: SODIUM CHLORIDE 0.9% 1,000 ML IV SCH ×4 (02:05→22:01)
[2019-10-24] MEDS: HYDROmorphone 0.5 MG/0.5 ML SYRINGE IVP PRN ×6 (04:44→23:22)
[2019-10-24] MEDS: HEPARIN SODIUM,PORCINE 5,000 UNIT/ML 1 ML VIAL SQ SCH ×3 (08:50→23:25)
[2019-10-24] MEDS: metroNIDAZOLE-NS PMX 500 MG in SALINE 1 100ML.BAG IVPB SCH ×3 (08:50→23:21)
[2019-10-24 09:35] LABS: HCT 37.3 % (34.0-46.0); HGB 11.8 gm/dL (11.4-16.0); MCH 29.9 pg (25.0-35.0); MCHC 31.5 g/dL (31.0-37.0); MCV 94.9 fL (80.0-100.0); Mean Platelet Volume 8.2; Platelet Count 307 k/uL (150-450); RBC 3.93 m/uL (3.80-5.40); RDW 12.6 % (11.5-15.5); WBC 12.6 k/uL (3.8-10.6)
[2019-10-24 10:04] LABS: ALT 38 U/L (4-34); AST 25 U/L (14-36); African American GFR (CKD) >90 (>60 ml/min/1.73 sqM); Albumin 3.3 g/dL (3.5-5.0); Alkaline Phosphatase 103 U/L (38-126); Anion Gap 7 mmol/L; Blood Urea Nitrogen 10 mg/dL (7-17); Calcium 8.6 mg/dL (8.4-10.2); Carbon Dioxide 25 mmol/L (22-30); Chloride 105 mmol/L (98-107); Glucose 88 mg/dL (74-99); Non-African American GFR(CKD) >90 (>60 ml/min/1.73 sqM); Potassium 4.2 mmol/L (3.5-5.1); Sodium 137 mmol/L (137-145); Total Bilirubin 0.6 mg/dL (0.2-1.3); Total Protein 5.9 g/dL (6.3-8.2)
--- NOTE | 2019-10-24 10:05 | P.PN ---
Subjective Progress Note Date: 10/24/19 HISTORY OF PRESENT ILLNESS Patient comes in with two-week history of abdominal pain off and on she described it as sharp colicky abdominal pain over the lower part of her abdomen gets worse with movement has been going on and getting worse over the past 2 weeks she just her PCP who prescribed her some Cipro for possible UTI she still taking it. She reports some chills but denies any nausea vomiting denies any diarrhea denies any GI bleeding denies any vaginal discharge. She is tolerating by mouth intake. However today she felt that the pain is getting worse she got back from work slept for 2 hours pain awaken her and decided to come to the hospital for evaluation as despite taking the antibiotics she wasn't getting any relief or improvement. She denies any recent traveling or sick contacts denies any similar symptoms in the past. In the ED she was found to have leukocytosis, CT of the abdomen revealed sigmoid diverticulosis with acute diverticulitis and 3 x 1.5 cm abscess formation patient also found to have hydropic gallbladder with 1.6 cm gallbladder neck calculus, also she was found to have 1.4 cm stone in the left renal pelvis and adrenal adenoma suspected recommending follow-up 10/22: The patient is seen in follow-up today. Care has been transitioned to our service as we cover for Dr. Joann Renee. Patient has consult in place with Dr. Collins and Dr. Drew. She is currently on Zosyn and Flagyl. She is also nothing by mouth. She's been afebrile, heart rate 89, blood pressure 126/73 pulse ox 95% on room air. Patient complains of continued abdominal pain in the lower quadrants. A repeat blood work will be ordered for tomorrow, urine and bl ood cultures are in progress. 10/23: Patient has been seen by Dr. Collnis with recommendations to continue Zosyn. Patient also seen by Dr. Drew and diet has been advanced to clear liquids. Plan is for outpatient colonoscopy and cholecystectomy. Patient's been afebrile, heart rate 76, blood pressure 113/71, pulse ox 96% on room air. Patient states that the abdominal pain in somewhat better but still has a pressure sensation. Abdomen in soft. No nausea or vomiting. Patient is tolerating clear liquids. Repeat blood work reveals improved leukocytosis of 12.7, hemoglobin is 11.8. Chemistry panel is currently pending. REVIEW OF SYSTEMS Constitutional: No fever, no chills, no night sweats. No weight change. Reports weakness, fatigue. No daytime sleepiness. EENT: No headache. No blurred vision or double vision, no loss of vision. No dizziness. No nasal drainage or congestion. No epistaxis. No sore throat. Lungs: No shortness of breath, cough, no sputum production. No wheezing. Cardiovascular: No chest pain, no lower extremity edema. No palpitations. No p aroxysmal nocturnal dyspnea. No orthopnea. No lightheadedness or dizziness. No syncopal episodes. Abdominal: Reports abdominal pain-improving. No nausea, vomiting. No diarrhea. No constipation. No bloody or tarry stools reports loss of appetite. Genitourinary: Reports dysuria, increased frequency, urgency. No urinary retention. Musculoskeletal: No myalgias. No muscle weakness, no gait dysfunction, no frequent falls. No back pain. No neck pain. Integumentary: No wounds, no lesions. No rash or pruritus. No unusual bruising. No change in hair or nails. Neurologic: No aphasia. No facial droop. No change in mentation. No head injury. No headache. No paralysis. No paresthesia. Psychiatric: No depression. No anxiety. No mood swings. Endocrine: No abnormal blood sugars. No weight change. PHYSICAL EXAMINATION Gen: This is a 49-year-old female. Patient is resting in bed and appears to be comfortable and in no acute distress. HEENT: Head is atraumatic, normocephalic. Pupils equal, round. Sclerae is anicteric. NECK: Supple. No JVD. No lymphadenopathy. No thyromegaly. LUNGS: Clear to auscultation. No wheezes or rhonchi. No intercostal re tractions. HEART: Regular rate and rhythm. No murmur. ABDOMEN: Soft. Bowel sounds are present. No masses. Mild left lower quadrant tenderness. EXTREMITIES: No pedal edema. No calf tenderness. Dorsalis pedis +2 bilaterally. NEUROLOGICAL: Patient is awake, alert and oriented x3. Cranial nerves 2 through 12 are grossly intact. ASSESSMENT AND PLAN 1. Sepsis secondary to acute diverticulitis with abscess formation. Patient is currently on clear liquids, continue IV fluids, continue current pain medicine. Continue Zosyn and Flagyl. Zofran as needed for nausea. Consults with infectious disease and general surgery appreciated. 2. Hydropic gallbladder with gallbladder neck calculus. Consult with Dr. Drew appreciated. 3. Hepatomegaly. 4. Adenoma of the left adrenal gland, recommend follow-up in 6 months. 5. DVT prophylaxis. Heparin subcu. 6. GI prophylaxis. Protonix. Discharge plan: home in 24 - 48 hours. Impression and plan of care have been directed as dictated by the signing physician. Siobhan Novak nurse practitioner acting as scribe for signing physician. Objective - Vital Signs Vital signs: Vital Signs Temp 98.7 F 10/24/19 05:00 Pulse 76 10/24/19 05:00 Resp 16 10/24/19 05:00 BP 113/71 10/24/19 05:00 Pulse Ox 96 10/24/19 05:49 Intake & Output 10/23/19 10/24/19 10/24/19 18:59 06:59 18:59 Intake Total 2250 Balance 2250 Intake: Intake, IV Titration 1560 Amount Piperacillin-Tazobactam 3 100 .375 gm In Sodium Chloride 0.9% 100 ml @ 25 mls/hr IVPB Q8HR [facility] Rx# :[id number] Sodium Chloride 0.9% 1, 1360 000 ml @ 140 mls/hr IV . Q7H9M [facility] Rx#:[id number] metroNIDAZOLE-NS PMX 500 100 mg In Saline 1 100ml.bag @ 100 mls/hr IVPB Q8HR [facility] Rx#:[id number] Oral 690 Other: Voiding Method Toilet # Voids 2 5 - Labs CBC & Chem 7: 10/24/19 08:25 10/22/19 19:42 Labs: Microbiology - Last 24 Hours (Table) 10/22/19 22:13 Blood Culture - Preliminary Blood No Growth after 24 hours 10/22/19 19:42 Urine Culture - Final Urine,Voided
--- NOTE | 2019-10-24 13:33 | P.PN ---
<Guera Juarez - Last Filed: 10/24/19 13:29> Subjective Progress Note Date: 10/24/19 CHIEF COMPLAINT: Left lower quadrant abdominal pain HISTORY OF PRESENT ILLNESS: Patient presented with left lower quadrant abdominal pain. She is being treated for an acute diverticulitis with abscess. Her abdominal pain is starting to improve. She is tolerating a clear liquid diet. White count has come down from 16.7-12.6 she is afebrile. She reports passing gas PHYSICAL EXAM: VITAL SIGNS: Reviewed. GENERAL: Well-developed in no acute distress. HEENT: No sclera icterus. Extraocular movements grossly intact. Moist buccal mucosa. Head is atraumatic, normocephalic. ABDOMEN: Soft. Nondistended. Minimal tenderness with palpation of the left lower quadrant NEUROLOGIC: Alert and oriented. Cranial nerves II through XII grossly intact. ASSESSMENT: 1. Acute diverticulitis with small pericolonic abscess 2. Hydropic gallbladder with 1.6 cm gallbladder neck calculus PLAN: -Continue IV antibiotics -Continue clear liquid diet -No surgical intervention planned at this time -Recommend outpatient colonoscopy and cholecystectomy Physician [employer] Developer note has been reviewed by physician. Signing provider agrees with the documented findings, assessment, and plan of care. Objective - Vital Signs Vital signs: Vital Signs Temp 98.7 F 10/24/19 05:00 Pulse 76 10/24/19 05:00 Resp 16 10/24/19 05:00 BP 113/71 10/24/19 05:00 Pulse Ox 96 10/24/19 05:49 Intake & Output 10/23/19 10/24/19 10/24/19 18:59 06:59 18:59 Intake Total 2250 Balance 2250 Intake: Intake, IV Titration 1560 Amount Piperacillin-Tazobactam 3 100 .375 gm In Sodium Chloride 0.9% 100 ml @ 25 mls/hr IVPB Q8HR [facility] Rx# :[id number] Sodium Chloride 0.9% 1, 1360 000 ml @ 140 mls/hr IV . Q7H9M [facility] Rx#:[id number] metroNIDAZOLE-NS PMX 500 100 mg In Saline 1 100ml.bag @ 100 mls/hr IVPB Q8HR [facility] Rx#:[id number] Oral 690 Other: Voiding Method Toilet Toilet # Voids 2 5 - Labs CBC & Chem 7: 10/24/19 08:25 10/24/19 08:25 Labs: Abnormal Lab Results - Last 24 Hours (Table) 10/24/19 10/24/19 Range/Units 08:25 08:25 WBC 12.6 H (3.8-10.6) k/uL ALT 38 H (4-34) U/L Total Protein 5.9 L (6.3-8.2) g/dL Albumin 3.3 L (3.5-5.0) g/dL Microbiology - Last 24 Hours (Table) 10/22/19 22:13 Blood Culture - Preliminary Blood No Growth after 24 hours 10/22/19 19:42 Urine Culture - Final Urine,Voided <Joseph Drew - Last Filed: 10/24/19 18:58> Subjective As above. Pain is improving. Continue liquid diet. Continue IV antibiotics. Objective - Vital Signs Vital signs: Vital Signs Temp 98 F 10/24/19 14:00 Pulse 87 10/24/19 14:00 Resp 18 10/24/19 14:00 BP 118/71 10/24/19 14:00 Pulse Ox 94 L 10/24/19 14:00 Intake & Output 10/23/19 10/24/19 10/24/19 18:59 06:59 18:59 Intake Total 2250 Balance 2250 Intake: Intake, IV Titration 1560 Amount Piperacillin-Tazobactam 3 100 .375 gm In Sodium Chloride 0.9% 100 ml @ 25 mls/hr IVPB Q8HR [facility] Rx# :[id number] Sodium Chloride 0.9% 1, 1360 000 ml @ 140 mls/hr IV . Q7H9M [facility] Rx#:[id number] metroNIDAZOLE-NS PMX 500 100 mg In Saline 1 100ml.bag @ 100 mls/hr IVPB Q8HR [facility] Rx#:[id number] Oral 690 Other: Voiding Method Toilet Toilet # Voids 2 5 2 - Labs CBC & Chem 7: 10/24/19 08:25 10/24/19 08:25 Labs: Abnormal Lab Results - Last 24 Hours (Table) 10/24/19 10/24/19 Range/Units 08:25 08:25 WBC 12.6 H (3.8-10.6) k/uL ALT 38 H (4-34) U/L Total Protein 5.9 L (6.3-8.2) g/dL Albumin 3.3 L (3.5-5.0) g/dL Microbiology - Last 24 Hours (Table) 10/22/19 22:13 Blood Culture - Preliminary Blood No Growth after 24 hours 10/22/19 19:42 Urine Culture - Final Urine,Voided
--- NOTE | 2019-10-24 16:23 | PN ---
PROGRESS NOTE DATE OF SERVICE: 10/24/2019 REASON FOR FOLLOWUP: Sigmoid diverticulitis with intramural abscess. INTERVAL HISTORY: The patient is breathing comfortably. Patient denies having any chest pain, no shortness of breath, no cough. Abdominal pain is slightly controlled. No nausea, no vomiting. No diarrhea. PHYSICAL EXAMINATION: Blood pressure 119/70 with a pulse of 87, temperature 98. She is 94% on room air. General description is a middle-aged female, lying in bed in no distress. RESPIRATORY SYSTEM: Unlabored breathing, clear to auscultation anteriorly. Heart S1, S2. Regular rate and rhythm. ABDOMEN: Soft, no tenderness. LEGS: No edema of the feet. LABS: Hemoglobin 11.8, white count 8.6, BUN of 10, creatinine 0.58. Blood culture negative. DIAGNOSTIC IMPRESSION AND PLAN: Patient with acute sigmoid diverticulitis with abdominal abscess, failing outpatient oral Cipro. Seemed to some clinical improvement with Zosyn. Will try to arrange for outpatient Invanz 1 g daily for 2 weeks. Continue Zosyn. Continue supportive care. MMODL / IJN: [id number] /
[2019-10-24] MEDS: ONDANSETRON 4 MG/2 ML VIAL IVP PRN (21:37)
[2019-10-25] MEDS: HYDROmorphone 0.5 MG/0.5 ML SYRINGE IVP PRN ×4 (02:09→16:43)
[2019-10-25] MEDS: SODIUM CHLORIDE 0.9% 1,000 ML IV SCH ×3 (05:49→20:40)
[2019-10-25 06:43] LABS: MCH 30.4 pg (25.0-35.0); MCHC 31.6 g/dL (31.0-37.0); MCV 96.2 fL (80.0-100.0); Platelet Count 248 k/uL (150-450); RBC 3.95 m/uL (3.80-5.40); RDW 12.7 % (11.5-15.5); WBC 13.5 k/uL (3.8-10.6)
[2019-10-25 06:54] LABS: ALT 38 U/L (4-34); AST 29 U/L (14-36); African American GFR (CKD) >90 (>60 ml/min/1.73 sqM); Albumin 3.1 g/dL (3.5-5.0); Alkaline Phosphatase 94 U/L (38-126); Anion Gap 5 mmol/L; Blood Urea Nitrogen 8 mg/dL (7-17); Calcium 8.3 mg/dL (8.4-10.2); Carbon Dioxide 24 mmol/L (22-30); Chloride 107 mmol/L (98-107); Glucose 96 mg/dL (74-99); Non-African American GFR(CKD) >90 (>60 ml/min/1.73 sqM); Sodium 136 mmol/L (137-145); Total Bilirubin 0.7 mg/dL (0.2-1.3)
[2019-10-25 07:10] LABS: Potassium 4.3 mmol/L (3.5-5.1)
[2019-10-25] MEDS: metroNIDAZOLE-NS PMX 500 MG in SALINE 1 100ML.BAG IVPB SCH ×3 (07:33→23:19)
[2019-10-25] MEDS: HEPARIN SODIUM,PORCINE 5,000 UNIT/ML 1 ML VIAL SQ SCH ×3 (07:33→23:21)
[2019-10-25] MEDS: PIPERACILLIN-TAZOBACTAM 3.375 GM in SODIUM CHLORIDE 0.9% 100 ML IVPB SCH ×3 (08:38→23:59)
--- NOTE | 2019-10-25 11:51 | P.PN ---
Subjective Progress Note Date: 10/25/19 HISTORY OF PRESENT ILLNESS Patient comes in with two-week history of abdominal pain off and on she described it as sharp colicky abdominal pain over the lower part of her abdomen gets worse with movement has been going on and getting worse over the past 2 weeks she just her PCP who prescribed her some Cipro for possible UTI she still taking it. She reports some chills but denies any nausea vomiting denies any diarrhea denies any GI bleeding denies any vaginal discharge. She is tolerating by mouth intake. However today she felt that the pain is getting worse she got back from work slept for 2 hours pain awaken her and decided to come to the hospital for evaluation as despite taking the antibiotics she wasn't getting any relief or improvement. She denies any recent traveling or sick contacts denies any similar symptoms in the past. In the ED she was found to have leukocytosis, CT of the abdomen revealed sigmoid diverticulosis with acute diverticulitis and 3 x 1.5 cm abscess formation patient also found to have hydropic gallbladder with 1.6 cm gallbladder neck calculus, also she was found to have 1.4 cm stone in the left renal pelvis and adrenal adenoma suspected recommending follow-up 10/22: The patient is seen in follow-up today. Care has been transitioned to our service as we cover for Dr. Joann Renee. Patient has consult in place with Dr. Collins and Dr. Drew. She is currently on Zosyn and Flagyl. She is also nothing by mouth. She's been afebrile, heart rate 89, blood pressure 126/73 pulse ox 95% on room air. Patient complains of continued abdominal pain in the lower quadrants. A repeat blood work will be ordered for tomorrow, urine and bl ood cultures are in progress. 10/23: Patient has been seen by Dr. Collins with recommendations to continue Zosyn. Patient also seen by Dr. Drew and diet has been advanced to clear liquids. Plan is for outpatient colonoscopy and cholecystectomy. Patient's been afebrile, heart rate 76, blood pressure 113/71, pulse ox 96% on room air. Patient states that the abdominal pain in somewhat better but still has a pressure sensation. Abdomen in soft. No nausea or vomiting. Patient is tolerating clear liquids. Repeat blood work reveals improved leukocytosis of 12.7, hemoglobin is 11.8. Chemistry panel is currently pending. 10/24: Patient has been afebrile, heart rate 82, blood pressure 109/70, pulse ox 95% on room air. Repeat blood work this morning reveals WBC 13.5, hemoglobin 12. Sodium 136, potassium 4.3, creatinine 0.54, ALT 38. Blood culture showing no growth at 48 hours and urine cultures been finalized with skin stephan. Patient is currently on clear liquid diet and she denies nausea or vomiting. She states she has not had a bowel movement since she came in. She is having pain and pelvic pressure. Plan is to continue conservative management. REVIEW OF SYSTEMS Constitutional: No fever, no chills, no night sweats. No weight change. Reports weakness, fatigue. No daytime sleepiness. EENT: No headache. No blurred vision or double vision, no loss of vision. No dizziness. No nasal drainage or congestion. No epistaxis. No sore throat. Lungs: No shortness of breath, cough, no sputum production. No wheezing. Cardiovascular: No chest pain, no lower extremity edema. No palpitations. No paroxysmal nocturnal dyspnea. No orthopnea. No lightheadedness or dizziness. No syncopal episodes. Abdominal: Reports abdominal pain and pelvic pressure. No nausea, vomiting. No diarrhea. Reports constipation. No bloody or tarry stools reports loss of a ppetite. Genitourinary: Reports dysuria, increased frequency, urgency. No urinary retention. Musculoskeletal: No myalgias. No muscle weakness, no gait dysfunction, no frequent falls. No back pain. No neck pain. Integumentary: No wounds, no lesions. No rash or pruritus. No unusual bruising. No change in hair or nails. Neurologic: No aphasia. No facial droop. No change in mentation. No head injury. No headache. No paralysis. No paresthesia. Psychiatric: No depression. No anxiety. No mood swings. Endocrine: No abnormal blood sugars. No weight change. PHYSICAL EXAMINATION Gen: This is a 49-year-old female. Patient is resting in bed and appears to be comfortable and in no acute distress. HEENT: Head is atraumatic, normocephalic. Pupils equal, round. Sclerae is anicteric. NECK: Supple. No JVD. No lymphadenopathy. No thyromegaly. LUNGS: Clear to auscultation. No wheezes or rhonchi. No intercostal retractions. HEART: Regular rate and rhythm. No murmur. ABDOMEN: Soft. Bowel sounds are present. No masses. Mild left lower quadrant tenderness. EXTREMITIES: No pedal edema. No calf tenderness. Dorsalis pedis +2 bilaterally. NEUROLOGICAL: Patient is awake, alert and oriented x3. Cranial nerves 2 through 12 are grossly intact. ASSESSMENT AND PLAN 1. Sepsis secondary to acute diverticulitis with abscess formation. Patient is currently on clear liquids, continue IV fluids, continue Dilaudid as needed for pain. Continue Zosyn and Flagyl. Zofran as needed for nausea. Consults with infectious disease and general surgery appreciated. 2. Hydropic gallbladder with gallbladder neck calculus. Consult with Dr. Drew appreciated. Plan for outpatient cholecystectomy down the road. 3. Hepatomegaly. 4. Adenoma of the left adrenal gland, recommend follow-up in 6 months. 5. DVT prophylaxis. Heparin subcu. 6. GI prophylaxis. Protonix. Discharge plan: home in 24 - 48 hours. Impression and plan of care have been directed as dictated by the signing physician. Siobhan Novak nurse practitioner acting as scribe for signing physician. Objective - Vital Signs Vital signs: Vital Signs Temp 98.3 F 10/25/19 04:06 Pulse 82 10/25/19 04:06 Resp 16 10/25/19 04:06 BP 109/70 10/25/19 04:06 Pulse Ox 95 10/25/19 05:30 Intake & Output 10/24/19 10/25/19 10/25/19 18:59 06:59 18:59 Intake Total 2450 Balance 2450 Intake: Intake, IV Titration 1560 Amount Piperacillin-Tazobactam 3 100 .375 gm In Sodium Chloride 0.9% 100 ml @ 25 mls/hr IVPB Q8HR [facility] Rx# :[id number] Sodium Chloride 0.9% 1, 1360 000 ml @ 140 mls/hr IV . Q7H9M [facility] Rx#:[id number] metroNIDAZOLE-NS PMX 500 100 mg In Saline 1 100ml.bag @ 100 mls/hr IVPB Q8HR [facility] Rx#:[id number] Oral 890 Other: Voiding Method Toilet Toilet # Voids 2 3 - Labs CBC & Chem 7: 10/25/19 06:19 10/25/19 06:19 Labs: Abnormal Lab Results - Last 24 Hours (Table) 10/24/19 10/24/19 10/25/19 Range/Units 08:25 08:25 06:19 WBC 12.6 H 13.5 H (3.8-10.6) k/uL Sodium (137-145) mmol/L Calcium (8.4-10.2) mg/dL ALT 38 H (4-34) U/L Total Protein 5.9 L (6.3-8.2) g/dL Albumin 3.3 L (3.5-5.0) g/dL 10/25/19 Range/Units 06:19 WBC (3.8-10.6) k/uL Sodium 136 L (137-145) mmol/L Calcium 8.3 L (8.4-10.2) mg/dL ALT 38 H (4-34) U/L Total Protein 6.0 L (6.3-8.2) g/dL Albumin 3.1 L (3.5-5.0) g/dL Microbiology - Last 24 Hours (Table) 10/22/19 22:13 Blood Culture - Preliminary Blood No Growth after 48 hours
--- NOTE | 2019-10-25 13:20 | P.PN ---
<Guera Juarez - Last Filed: 10/25/19 13:17> Subjective Progress Note Date: 10/25/19 CHIEF COMPLAINT: Left lower quadrant abdominal pain HISTORY OF PRESENT ILLNESS: Patient presented with left lower quadrant abdominal pain. She is being treated for an acute diverticulitis with abscess. She continues to report improvement in her pain. Her pain now has moved more from the left into the middle of the lower abdomen. She is tolerating a clear liquid diet. She is passing gas. No bowel movement. White count has slightly increased from 12.6-13.5. Infectious disease is working on outpatient antibiotics with Invanz at discharge. PHYSICAL EXAM: VITAL SIGNS: Reviewed. GENERAL: Well-developed in no acute distress. HEENT: No sclera icterus. Extraocular movements grossly intact. Moist buccal mucosa. Head is atraumatic, normocephalic. ABDOMEN: Soft. Nondistended. Minimal tenderness with palpation of the left lower quadrant NEUROLOGIC: Alert and oriented. Cranial nerves II through XII grossly intact. ASSESSMENT: 1. Acute diverticulitis with small pericolonic abscess 2. Hydropic gallbladder with 1.6 cm gallbladder neck calculus PLAN: -Continue IV antibiotics -Continue clear liquid diet -No surgical intervention planned at this time -Recommend outpatient colonoscopy and cholecystectomy Physician Radar Operator note has been reviewed by physician. Signing provider agrees with the documented findings, assessment, and plan of care. Objective - Vital Signs Vital signs: Vital Signs Temp 97.6 F 10/25/19 12:15 Pulse 82 10/25/19 12:15 Resp 16 10/25/19 12:15 BP 123/80 10/25/19 12:15 Pulse Ox 95 10/25/19 12:15 Intake & Output 10/24/19 10/25/19 10/25/19 18:59 06:59 18:59 Intake Total 2450 Balance 2450 Intake: Intake, IV Titration 1560 Amount Piperacillin-Tazobactam 3 100 .375 gm In Sodium Chloride 0.9% 100 ml @ 25 mls/hr IVPB Q8HR [facility] Rx# :[id number] Sodium Chloride 0.9% 1, 1360 000 ml @ 140 mls/hr IV . Q7H9M [facility] Rx#:[id number] metroNIDAZOLE-NS PMX 500 100 mg In Saline 1 100ml.bag @ 100 mls/hr IVPB Q8HR [facility] Rx#:[id number] Oral 890 Other: Voiding Method Toilet Toilet Toilet # Voids 2 3 - Labs CBC & Chem 7: 10/25/19 06:19 10/25/19 06:19 Labs: Abnormal Lab Results - Last 24 Hours (Table) 10/25/19 10/25/19 Range/Units 06:19 06:19 WBC 13.5 H (3.8-10.6) k/uL Sodium 136 L (137-145) mmol/L Calcium 8.3 L (8.4-10.2) mg/dL ALT 38 H (4-34) U/L Total Protein 6.0 L (6.3-8.2) g/dL Albumin 3.1 L (3.5-5.0) g/dL Microbiology - Last 24 Hours (Table) 10/22/19 22:13 Blood Culture - Preliminary Blood No Growth after 48 hours <Joseph Drew - Last Filed: 10/25/19 14:28> Subjective As above. Patient improving. Will increase diet. Anticipate discharge tomorrow. Objective - Vital Signs Vital signs: Vital Signs Temp 97.6 F 10/25/19 12:15 Pulse 82 10/25/19 12:15 Resp 16 10/25/19 12:15 BP 123/80 10/25/19 12:15 Pulse Ox 95 10/25/19 12:15 Intake & Output 10/24/19 10/25/19 10/25/19 18:59 06:59 18:59 Intake Total 2450 1600 Balance 2450 1600 Intake: Intake, IV Titration 1560 1000 Amount Piperacillin-Tazobactam 3 100 100 .375 gm In Sodium Chloride 0.9% 100 ml @ 25 mls/hr IVPB Q8HR [facility] Rx# :[id number] Sodium Chloride 0.9% 1, 1360 800 000 ml @ 140 mls/hr IV . Q7H9M [facility] Rx#:[id number] metroNIDAZOLE-NS PMX 500 100 100 mg In Saline 1 100ml.bag @ 100 mls/hr IVPB Q8HR [facility] Rx#:[id number] Oral 890 600 Other: Voiding Method Toilet Toilet Toilet # Voids 2 3 3 - Labs CBC & Chem 7: 10/25/19 06:19 10/25/19 06:19 Labs: Abnormal Lab Results - Last 24 Hours (Table) 10/25/19 10/25/19 Range/Units 06:19 06:19 WBC 13.5 H (3.8-10.6) k/uL Sodium 136 L (137-145) mmol/L Calcium 8.3 L (8.4-10.2) mg/dL ALT 38 H (4-34) U/L Total Protein 6.0 L (6.3-8.2) g/dL Albumin 3.1 L (3.5-5.0) g/dL Microbiology - Last 24 Hours (Table) 10/22/19 22:13 Blood Culture - Preliminary Blood No Growth after 48 hours
--- NOTE | 2019-10-25 16:55 | PN ---
PROGRESS NOTE DATE OF SERVICE: 10/25/2019 REASON FOR FOLLOWUP: Sigmoid diverticulitis with intramural abscess. INTERVAL HISTORY: Patient is currently afebrile. The patient is breathing comfortably. Patient denies having any chest pain. No shortness of breath or cough. The left lower abdominal pain has decreased. No nausea, no vomiting. Did not have any bowel movement. PHYSICAL EXAMINATION: Blood pressure is 123/80 with a pulse of 82, temperature 97.6. She is 95% on room air. General description is a middle-aged female, up in the room in no distress. RESPIRATORY SYSTEM: Unlabored breathing, clear to auscultation anteriorly. HEART: S1, S2. Regular rate and rhythm. ABDOMEN: Soft. No tenderness. LABS: Hemoglobin is 12, white count 13.5, BUN of 8, creatinine 0.54. DIAGNOSTIC IMPRESSION AND PLAN: Patient with sigmoid diverticulitis, failing outpatient oral Cipro now with complication of small left intramural abscess. The patient's white count slightly up, will need to monitor closely. Continue Zosyn. Will benefit from outpatient IV antibiotic for 2 weeks which is currently possibly being arranged. MMODL / IJN: [id number] /
[2019-10-25 17:26] VITALS: RESP 18
[2019-10-25] MEDS ORDERED: bisacodyL 10 MG SUPP RECTAL STA (18:33)
[2019-10-25] MEDS: ONDANSETRON 4 MG/2 ML VIAL IVP PRN (23:19)
[2019-10-26] MEDS: HYDROmorphone 0.5 MG/0.5 ML SYRINGE IVP PRN (01:36)
[2019-10-26] MEDS: SODIUM CHLORIDE 0.9% 1,000 ML IV SCH ×2 (02:49→13:22)
[2019-10-26 04:16] VITALS: BP 113/73; PULSE 83; TEMP 98.9
[2019-10-26] MEDS: HEPARIN SODIUM,PORCINE 5,000 UNIT/ML 1 ML VIAL SQ SCH (07:56)
[2019-10-26] MEDS: metroNIDAZOLE-NS PMX 500 MG in SALINE 1 100ML.BAG IVPB SCH (07:56)
[2019-10-26] MEDS ORDERED: HYDROcodone/APAP 5-325MG 1 EACH TAB PO PRN (07:58)
--- NOTE | 2019-10-26 09:23 | P.PN ---
Subjective Progress Note Date: 10/26/19 Principal diagnosis: Diverticulitis Patient feels better today. Pain is 2 out of 10. She has had multiple small stools. She would like to go home. Plans are underway for home IV antibiotics. Objective - Vital Signs Vital signs: Vital Signs Temp 98.9 F 10/26/19 04:14 Pulse 83 10/26/19 04:14 Resp 18 10/26/19 04:14 BP 113/73 10/26/19 04:14 Pulse Ox 95 10/26/19 04:14 Intake & Output 10/25/19 10/26/19 10/26/19 18:59 06:59 18:59 Intake Total 1840 2290 Output Total 1 1 Balance 1840 2289 -1 Intake: Intake, IV Titration 1000 1400 Amount Piperacillin-Tazobactam 3 100 100 .375 gm In Sodium Chloride 0.9% 100 ml @ 25 mls/hr IVPB Q8HR [facility] Rx# :[id number] Sodium Chloride 0.9% 1, 800 1200 000 ml @ 140 mls/hr IV . Q7H9M [facility] Rx#:[id number] metroNIDAZOLE-NS PMX 500 100 100 mg In Saline 1 100ml.bag @ 100 mls/hr IVPB Q8HR [facility] Rx#:[id number] Oral 840 890 Output: Stool 1 1 Other: Voiding Method Toilet Toilet # Voids 3 3 - Exam Abdomen: Soft, nontender, nondistended - Labs CBC & Chem 7: 10/25/19 06:19 10/25/19 06:19 Labs: Microbiology - Last 24 Hours (Table) 10/22/19 22:13 Blood Culture - Preliminary Blood No Growth after 72 hours Assessment and Plan (1) Diverticulitis of intestine with abscess Narrative/Plan: Patient improving slowly. Continue antibiotics postdischarge. Advance to low fiber diet. Follow-up 2-3 weeks in the office. Current Visit: Yes Status: Acute Code(s): K57.80 - DVTRCLI OF INTEST, PART UNSP, W PERF AND ABSCESS W/O BLEED SNOMED Code(s): 458553257
[2019-10-26 09:27] LABS: HGB 11.7 gm/dL (11.4-16.0); MCH 30.5 pg (25.0-35.0); MCHC 32.5 g/dL (31.0-37.0); MCV 93.7 fL (80.0-100.0); Platelet Count 330 k/uL (150-450); RBC 3.85 m/uL (3.80-5.40); RDW 12.6 % (11.5-15.5); WBC 12.4 k/uL (3.8-10.6)
[2019-10-26 09:43] LABS: ALT 28 U/L (4-34); AST 22 U/L (14-36); African American GFR (CKD) >90 (>60 ml/min/1.73 sqM); Albumin 3.1 g/dL (3.5-5.0); Alkaline Phosphatase 109 U/L (38-126); Anion Gap 6 mmol/L; Blood Urea Nitrogen 6 mg/dL (7-17); Calcium 8.7 mg/dL (8.4-10.2); Carbon Dioxide 26 mmol/L (22-30); Chloride 104 mmol/L (98-107); Glucose 158 mg/dL (74-99); Non-African American GFR(CKD) >90 (>60 ml/min/1.73 sqM); Potassium 3.5 mmol/L (3.5-5.1); Sodium 136 mmol/L (137-145); Total Bilirubin 0.5 mg/dL (0.2-1.3); Total Protein 5.8 g/dL (6.3-8.2)
--- NOTE | 2019-10-26 10:51 | P.DS ---
Providers Date of admission: 10/22/19 22:06 Expected date of discharge: 10/26/19 Attending physician: Hi Yu Consults: 10/22/19 21:59 Consult Physician Stat Consulting Provider: Joseph rDew Consult Reason/Comments: Diverticulitis with abscess Do you want consulting provider notified?: Yes 10/23/19 07:56 Consult Physician Routine Consulting Provider: Marcia Collins Consult Reason/Comments: diverticulitis Do you want consulting provider notified?: Yes Primary care physician: Joann Renee [facility] Course: HISTORY OF PRESENT ILLNESS Patient comes in with two-week history of abdominal pain off and on she described it as sharp colicky abdominal pain over the lower part of her abdomen gets worse with movement has been going on and getting worse over the past 2 weeks she just her PCP who prescribed her some Cipro for possible UTI she still taking it. She reports some chills but denies any nausea vomiting denies any diarrhea denies any GI bleeding denies any vaginal discharge. She is tolerating by mouth intake. However today she felt that the pain is getting worse she got back from work slept for 2 hours pain awaken her and decided to come to the hospital for evaluation as despite taking the antibiotics she wasn't getting any relief or improvement. She denies any recent traveling or sick contacts denies any similar symptoms in the past. In the ED she was found to have leukocytosis, CT of the abdomen revealed sigmoid diverticulosis with acute diverticulitis and 3 x 1.5 cm abscess formation patient also found to have hydropic gallbladder with 1.6 cm gallbladder neck calculus, also she was found to have 1.4 cm stone in the left renal pelvis and adrenal adenoma suspected recommending follow-up 10/22: The patient is seen in follow-up today. Care has been transitioned to our service as we cover for Dr. Joann Renee. Patient has consult in place with Dr. Collins and Dr. Drew. She is currently on Zosyn and Flagyl. She is also nothing by mouth. She's been afebrile, heart rate 89, blood pressure 126/73 pulse ox 95% on room air. Patient complains of continued abdominal pain in the lower quadrants. A repeat blood work will be ordered for tomorrow, urine and blood cultures are in progress. 9/9: Patient has been seen by Dr. Collins with recommendations to continue Zosyn. Patient also seen by Dr. Drew and diet has been advanced to clear liquids. Plan is for outpatient colonoscopy and cholecystectomy. Patient's been afebrile, heart rate 76, blood pressure 113/71, pulse ox 96% on room air. Patient states that the abdominal pain in somewhat better but still has a pressure sensation. Abdomen in soft. No nausea or vomiting. Patient is tolerating clear liquids. Repeat blood work reveals improved leukocytosis of 12.7, hemoglobin is 11.8. Chemistry panel is currently pending. 10/24: Patient has been afebrile, heart rate 82, blood pressure 109/70, pulse ox 95% on room air. Repeat blood work this morning reveals WBC 13.5, hemoglobin 12. Sodium 136, potassium 4.3, creatinine 0.54, ALT 38. Blood culture showing no growth at 48 hours and urine cultures been finalized with skin stephan. Patient is currently on clear liquid diet and she denies nausea or vomiting. She states she has not had a bowel movement since she came in. She is having pain and pelvic pressure. Plan is to continue conservative management. 10/25: Patient is currently tolerating a full liquid diet. She has had a bowel movement and abdominal pain is improving. She is not taking IV medication and [place] ordered. Patient mostly taking Tylenol at this point. She is scheduled for mid line placement and IV antibiotics per Dr. Collins. channel marketing program manager is working with [facility] for home IV antibiotics. Repeat blood work reveals WBC 12.4. Sodium 136, creatinine 0.49. Patient has been afebrile, heart rate 83, blood pressure 113/73, pulse ox 95% on room air. Patient has been seen by Dr. Drew and cleared for discharge. Patient will be discharged home today in stable condition. ASSESSMENT AND PLAN 1. Sepsis secondary to acute diverticulitis with abscess formation. 2. Hydropic gallbladder with gallbladder neck calculus. 3. Hepatomegaly. 4. Adenoma of the left adrenal gland, recommend follow-up in 6 months. Discharge plan: home. Impression and plan of care have been directed as dictated by the signing physician. Siobhan Novak nurse practitioner acting as scribe for signing physician. Patient Condition at Discharge: Good Plan - Discharge Summary Discharge Rx Participant: Yes New Discharge Prescriptions: New HYDROcodone/APAP 5-325MG [[place] 5-325] 1 each PO Q4HR PRN #18 tab PRN Reason: Pain Discontinued Ciprofloxacin HCl [Cipro] 500 mg PO BID Discharge Medication List HYDROcodone/APAP 5-325MG [[place] 5-325] 1 each PO Q4HR PRN #18 tab 10/26/19 [Rx] Follow up Appointment(s)/Referral(s): Joseph Drew MD [Medical Doctor] - 11/07/19 2:45 pm Joann Renee MD [Primary Care Provider] - 10/31/19 2:45 pm [facility], [NON-STAFF] - 1 Week [facility], [REFERRING] - 1 Week Patient Instructions/Handouts: Abdominal Pain (ED) Activity/Diet/Wound Care/Special Instructions: IV ABX from Dr. Collins Discharge Disposition: HOME SELF-CARE
[2019-10-26] MEDS ORDERED: ERTAPENEM 1 GM in SODIUM CHLORIDE 0.9% 50 ML IVPB STA (12:09)
[2019-10-26] MEDS: PIPERACILLIN-TAZOBACTAM 3.375 GM in SODIUM CHLORIDE 0.9% 100 ML IVPB SCH (12:10)
--- NOTE | 2019-10-26 15:41 | PN ---
PROGRESS NOTE DATE OF SERVICE: 10/26/2019 REASON FOR FOLLOWUP: Acute diverticulitis with intramural abscess, failing outpatient oral Cipro. INTERVAL HISTORY: The patient is currently afebrile. The patient is feeling better, breathing comfortably. Left lower quadrant abdominal pain has improved. No chest pain. No shortness of breath or cough. No diarrhea. PHYSICAL EXAMINATION: Blood pressure 113/73 with a pulse of 83, temperature 98.9. She is 95% on room air. General description is a middle-aged female up in the chair in no distress. RESPIRATORY SYSTEM: Unlabored breathing. Clear to auscultation anteriorly. HEART: S1, S2. Regular rate and rhythm. ABDOMEN: Soft. No tenderness. LABS: Hemoglobin 11.6, white count 12.4, BUN of 6, creatinine 0.49. DIAGNOSTIC IMPRESSION AND PLAN: Patient with acute sigmoid diverticulitis with intramural abscess. Responded to IV antibiotic therapy, failing outpatient oral Cipro. Plan for Invanz 1 gram daily for another 12 days to finish a 2-week course of therapy with a repeat CT off the antibiotic to make sure the abscess is resolved. Questions and concerns were answered. MMODL / IJN: [id number] /
== END 2019-10-26 15:22 | disposition home health service (06) | DRG 872 ==
LOC: EC 18:42 → 6NMEDSUR 22:06
PROVIDERS: ADMIT Internal Medicine Geriatric Medicine; ATTEND Internal Medicine Geriatric Medicine
PROC: 05HF33Z Insertion of Infusion Device into Left Cephalic Vein, Percutaneous Approach (ICD-10-PCS; principal; 2019-10-26 08:20)
DX: A41.9 Sepsis, unspecified organism (principal); K82.1 Hydrops of gallbladder; K57.20 Diverticulitis of large intestine with perforation and abscess without bleeding; R16.0 Hepatomegaly, not elsewhere classified; R31.9 Hematuria, unspecified; D35.02 Benign neoplasm of left adrenal gland; N20.0 Calculus of kidney; K80.20 Calculus of gallbladder without cholecystitis without obstruction; E66.9 Obesity, unspecified; K59.00 Constipation, unspecified; R31.0 Gross hematuria; F17.210 Nicotine dependence, cigarettes, uncomplicated; Z68.32 Body mass index [BMI] 32.0-32.9, adult; Z87.59 Personal history of other complications of pregnancy, childbirth and the puerperium; Z98.890 Other specified postprocedural states; Z87.442 Personal history of urinary calculi; Z87.440 Personal history of urinary (tract) infections; Z80.8 Family history of malignant neoplasm of other organs or systems; Z82.3 Family history of stroke; Z86.010 Personal history of colon polyps
CPT/HCPCS: 36410; 36415; 74177; 76937; 80053; 81001; 81025; 82150; 83605; 83690; 85025; 85027; 85610; 85730; 87040; 87086; 96361; 96365; 96375; 99285

== ENCOUNTER → 2019-10-30 | Outpatient (CLI) | payer OTHER ==
[2019-10-30 16:46] LABS: Basophils % (A) 0 %; Eosinophils # (A) 0.2 k/uL (0-0.7); Eosinophils % (A) 1 %; HCT 45.6 % (34.0-46.0); Lymphocytes # (A) 1.8 k/uL (1.0-4.8); Lymphocytes % (A) 10 %; MCH 30.9 pg (25.0-35.0); MCV 93.6 fL (80.0-100.0); Mean Platelet Volume 7.7; Monocytes % (A) 5 %; Neutrophils # (A) 14.6 k/uL (1.3-7.7); Neutrophils % (A) 82 %; Platelet Count 511 k/uL (150-450); RBC 4.87 m/uL (3.80-5.40); RDW 12.9 % (11.5-15.5); WBC 17.9 k/uL (3.8-10.6)
[2019-10-31 01:48] LABS: African American GFR (CKD) 123.2 (60.0-200.0); BUN/Creat Ratio 18.33 Ratio (12.00-20.00); C Reactive Protein 13.6 mg/dL (0.0-0.8); Calcium 9.3 mg/dL (8.7-10.3); Non-African American GFR(CKD) 106.3 (60.0-200.0); Potassium 3.6 mmol/L (3.5-5.5)
[2019-10-31 04:19] LABS: Erythrocyte Sedimentation Rate 21 mm/Hr (0-20)
== END | disposition home or self-care (01) ==
LOC: LABWHC1 16:08
PROVIDERS: ATTEND Internal Medicine Infectious Disease
DX: K57.80 Diverticulitis of intestine, part unspecified, with perforation and abscess without bleeding (principal)
CPT/HCPCS: 36415; 80048; 85025; 85652; 86140

== ENCOUNTER → 2019-10-31 | Outpatient (CLI) | payer OTHER ==
--- NOTE | 2019-10-31 12:56 | CT ---
EXAMINATION TYPE: CT abdomen pelvis w con DATE OF EXAM: 10/31/2019 COMPARISON: 10/22/2019 HISTORY: Diverticulitis of intestive, part unspecified CT DLP: 1622.70 mGycm Automated exposure control for dose reduction was used. CONTRAST: CT scan of the abdomen pelvis is performed with IV Contrast, patient injected with 100 ml mL of Isovu e 300. FINDINGS- LUNG BASES-subsegmental changes involving the lungs most typical of atelectasis.. LIVER/GB-large gallstone again noted within the neck of the gallbladder similar appearance to prior e xam. This does result in gallbladder hydrops. PANCREAS- No gross abnormality is seen. SPLEEN- No gross abnormality is seen. ADRENALS-1.6 cm indeterminate adrenal nodule measuring 38 Hounsfield units stable from prior exam.. KIDNEYS/BLADDER-mild prominence of the right collecting system.. There is a left renal pelvic calcifi cation measuring 1.4 cm with mild pelvic caliectasis. BOWEL-there is wall thickening and diverticular changes involving the sigmoid colon similar to the pr ior exam compatible with acute diverticulitis. The previously noted fluid collection measuring 3.1 cm again measures approximately 3.1 to 3.3 cm. However, there appears to be communication with this col lection with multiple additional smaller intramural or peridiverticular abscesses within the pelvis r anging in size from 2.3 cm 1.7 cm. Prior exam is without contrast which may obscure these previous co llections. Surgical consultation suggested.. Report called to referring clinician. LYMPH NODES- No greater than 1cm abdominal or pelvic lymph nodes areappreciated. OSSEOUS STRUCTURES- No significant abnormality is seen. OTHER- aorta of normal caliber. No free fluid. IMPRESSION- 1. Persistent changes of acute diverticulitis. Involving the mid to distal sigmoid colon. Severe infl ammatory changes are seen and again there appears to be a intramural abscess measuring 3.3 cm. There likely are multiple additional small intramural or peridiverticular abscesses ranging in size from 1. 7 to 2.3 cm. Prior exam was without contrast and may have masked these findings. 2. Gallbladder hydrops with a 1.6 cm gallstone in the neck of the gallbladder correlate clinically. M ild extrahepatic biliary dilation also noted. 3. Stable left renal pelvic calcification 4. Stable left adrenal nodule
== END | disposition home or self-care (01) ==
LOC: RADCTMAIN 10:36
PROVIDERS: ATTEND Internal Medicine Infectious Disease
DX: K57.92 Diverticulitis of intestine, part unspecified, without perforation or abscess without bleeding (principal); K80.20 Calculus of gallbladder without cholecystitis without obstruction
CPT/HCPCS: 74177; Q9967 ×2

== ENCOUNTER 2019-11-01 18:23 | Inpatient (IN) | payer OTHER ==
[2019-11-01] MEDS ORDERED: SODIUM CHLORIDE 0.9% 1,000 ML IV STA (19:41)
[2019-11-01] MEDS ORDERED: MORPHINE SULFATE 4 MG/ML SYRINGE IV STA (19:41)
[2019-11-01 20:45] LABS: Basophils # (A) 0.1 k/uL (0-0.2); Basophils % (A) 0 %; Eosinophils # (A) 0.3 k/uL (0-0.7); Eosinophils % (A) 1 %; HCT 44.7 % (34.0-46.0); HGB 14.5 gm/dL (11.4-16.0); Lymphocytes % (A) 11 %; MCH 29.6 pg (25.0-35.0); MCHC 32.3 g/dL (31.0-37.0); MCV 91.6 fL (80.0-100.0); Mean Platelet Volume 7.7; Monocytes # (A) 0.8 k/uL (0-1.0); Monocytes % (A) 4 %; Neutrophils # (A) 15.9 k/uL (1.3-7.7); Neutrophils % (A) 83 %; Platelet Count 499 k/uL (150-450); RBC 4.88 m/uL (3.80-5.40); RDW 12.8 % (11.5-15.5); WBC 19.2 k/uL (3.8-10.6)
[2019-11-01 20:57] LABS: Appearance,Urine Cloudy (Clear); Bilirubin,Urine Negative (Negative); Blood,Urine Moderate (Negative); Color,Urine Yellow; Glucose,Urine (UA) Negative (Negative); Ketones,Urine Negative (Negative); Leukocyte Esterase,Urine Small (Negative); Mucus,Urine Few /hpf; Nitrite,Urine Negative (Negative); PH, Urine 6.5 (5.0-8.0); Protein,Urine 1+ (Negative); RBC,Urine 28 /hpf (0-5); Specific Gravity,Urine 1.022 (1.001-1.035); Squamous Epithelial Cell,Urine 2 /hpf (0-4); WBC,Urine 7 /hpf (0-5)
--- NOTE | 2019-11-01 21:01 | XR ---
EXAMINATION TYPE: XR chest 2V DATE OF EXAM: 11/01/2019 COMPARISON: NONE HISTORY: Nausea TECHNIQUE: FINDINGS: Heart is normal. There is mild subsegmental atelectasis in the mid and lower lung farah. T here is no pleural effusion. There is no heart failure. There are no hilar masses. Mediastinum is nor mal. Bony thorax is intact. IMPRESSION: Mild bilateral subsegmental atelectasis. Normal heart.
--- NOTE | 2019-11-01 21:01 | XR ---
EXAMINATION TYPE: XR KUB DATE OF EXAM: 11/01/2019 COMPARISON: 05/03/2015 HISTORY: Pain TECHNIQUE: 2 views upright FINDINGS: There is no sign of intestinal obstruction or pneumoperitoneum. Fecal pattern is normal. Th ere is some contrast in the transverse colon. I see no definite calcifications over the kidneys. Ther e is mild atelectasis left lung base. There is 15 mm rounded calcification right upper quadrant. This could be a calcified gallstone. IMPRESSION: Possible calcified gallstone unchanged. Nonacute abdomen.
[2019-11-01 21:02] LABS: ALT 24 U/L (4-34); AST 23 U/L (14-36); African American GFR (CKD) >90 (>60 ml/min/1.73 sqM); Albumin 3.6 g/dL (3.5-5.0); Alkaline Phosphatase 101 U/L (38-126); Anion Gap 8 mmol/L; Blood Urea Nitrogen 10 mg/dL (7-17); Calcium 9.1 mg/dL (8.4-10.2); Carbon Dioxide 24 mmol/L (22-30); Chloride 106 mmol/L (98-107); Glucose 110 mg/dL (74-99); Non-African American GFR(CKD) >90 (>60 ml/min/1.73 sqM); Potassium 3.9 mmol/L (3.5-5.1); Sodium 138 mmol/L (137-145); Total Bilirubin 0.4 mg/dL (0.2-1.3); Total Protein 6.7 g/dL (6.3-8.2)
[2019-11-01 21:16] LABS: C Reactive Protein 145.3 mg/L (<10.0)
[2019-11-01] MEDS ORDERED: HYDROmorphone 0.5 MG/0.5 ML SYRINGE IVP STA (21:25)
--- NOTE | 2019-11-01 22:17 | US ---
EXAMINATION TYPE: US venous doppler duplex LE LT DATE OF EXAM: 11/01/2019 10:08 PM COMPARISON: NONE CLINICAL HISTORY: left leg pain. Left leg pain x 1 week. No hx of DVT. Patient does not take blood th inners. SIDE PERFORMED: Left TECHNIQUE: The lower extremity deep venous system is examined utilizing real time linear array sonog albertina with graded compression, doppler sonography and color-flow sonography. VESSELS IMAGED: External Iliac Vein (EIV) Common Femoral Vein Deep Femoral Vein Greater Saphenous Vein * Femoral Vein Popliteal Vein Small Saphenous Vein * Proximal Calf Veins (* superficial vessels) Left Leg: No evidence of DVT in veins imaged at this time from prox calf veins to EIV. Rouleaux flow seen. IMPRESSION: No deep vein thrombosis in the left leg.
--- NOTE | 2019-11-01 22:20 | ED ---
General Adult HPI - General Chief complaint: Abdominal Pain Stated complaint: Abd pain, diverticulitis Time Seen by Provider: 11/01/19 19:00 Source: patient, RN notes reviewed, old records reviewed Mode of arrival: ambulatory Limitations: no limitations - History of Present Illness Initial comments: 49-year-old female patient past medical history of a known diverticular abscess for which she is receiving antibiotics via PICC line [place] [facility] for chief c omplaint of continued pain and feeling of unwell. Patient reports that she is still having pain in her left lower quadrant region. His not well controlled. She reports that she is having some generalized myalgias. Also reports that she has a waxing waning dry cough. Denies any other acute complaints Systemic: Pt denies fatigue, fever/chills, rash. Pt denies weakness, night sweats, weight loss. Neuro: Pt denies headache, visual disturbances, syncope or pre-syncope. HEENT: Pt denies ocular discharge or irritation, otalgia, rhinorrhea, pharyngitis or notable lymphadenopathy. Cardiopulmonary: Pt denies chest pain, SOB, heart palpitations, dyspnea on exertion. Abdominal/GI: Pt denies n/v/d. : Pt denies dysuria, burning w/ urination, frequency/urgency. Denies new onset urinary or bowel incontinence. MSK: Pt denies myalgia, loss of strength or function in extremities. Neuro: Pt denies new onset weakness, paresthesias. - Related Data Home Medications Medication Instructions Recorded Confirmed Acetaminophen Tab [Tylenol] 650 mg PO Q4-6H PRN 11/01/19 11/01/19 Previous Rx's Medication Instructions Recorded Ertapenem [INVanz] 1 gm IVPB Q24H #12 bag 10/26/19 Allergies Allergy/AdvReac Type Severity Reaction Status Date / Time No Known Allergies Allergy Verified 11/01/19 20:15 Review of Systems ROS Statement: Those systems with pertinent positive or pertinent negative responses have been documented in the HPI. ROS Other: All systems not noted in ROS Statement are negative. Past Medical History Past Medical History: No Reported History Additional Past Medical History / Comment(s): loose stools after eating History of Any Multi-Drug Resistant Organisms: None Reported Past Surgical History: No Surgical Hx Reported Additional Past Surgical History / Comment(s): surgery for ectopic Past Anesthesia/Blood Transfusion Reactions: No Reported Reaction Past Psychological History: No Psychological Hx Reported Smoking Status: Former smoker Past Alcohol Use History: Rare Past Drug Use History: None Reported - Past Family History Mother Family Medical History: Cancer Additional Family Medical History / Comment(s): stomach Brother(s) Family Medical History: Cancer Additional Family Medical History / Comment(s): brain cancer Father Family Medical History: CVA/TIA General Exam - General Exam Comments Initial Comments: Constitutional: NAD, AOX3, Pt has pleasant affect. HEENT: NC/AT, trachea midline, neck supple, no lymphadenopathy. External ears appear normal, without discharge. Mucous membranes moist. Eyes PERRLA, EOM intact. There is no scleral icterus. No pallor noted. Cardiopulmonary: RRR, no murmurs, rubs or gallops, no JVD noted. Lungs CTAB in anterior and posterior farah. No peripheral edema. Abdominal exam: Abdomen soft and non-distended. Abdomen Mother tender to palpation left lower quadrant region.. Bowel sounds active in LLQ. No hepatosplenomegaly. No ecchymosis Neuro: CN II-XII grossly intact. No nuchal rigidity. No raccon eyes, no guidry sign, no hemotympanum. No cervical spinal tenderness. MSK: Mild tenderness to left posterior thigh region. no posterior calf tenderness. Homans sign negative bilaterally. Posterior tibialis and radial pulse +2 bilaterally. Sensation intact in upper and lower extremities. Full active ROM in upper and lower extremities, 5/5 stregnth. Limitations: no limitations Course Vital Signs 11/01/19 18:40 Temperature 98.2 F Pulse Rate 90 Respiratory 18 Rate Blood Pressure 139/89 O2 Sat by Pulse 96 Oximetry Medical Decision Making - Medical Decision Making 49-year-old female patient past history of diverticulitis which failed outpatient treatment was admitted and found to have an abscess. Patient was then discharged with a PICC line has been receiving ertapenem. She reports that she is still having pain has been feeling unwell noticed reports generalized myalgias. States that she does have mild cough from time to time. Denies any other acute complaints at this time. Physical exam displayed some mild left lower quadrant tenderness. Investigations reveal white blood cell count of 19. CRP 143. UA displayed some blood negative for infection. KUB displayed no acute abdomen. Chest x-ray revealed some atelectasis. Prior CT abdomen and pelvis displayed persistent changes in acute diverticulitis involving the mid to distal sigmoid colon. Inflammatory changes are seen displayed intramural abscess measuring 3.3 cm. There are likely multiple small uterine or peridiverticular abscess. Patient infectious disease doctor was aware of this and extended her PICC line antibiotics. Case was discussed with patient's surgeon Dr. Drew. Patient admitted for further evaluation. Case discussed with Dr. Castañeda. - Lab Data Result diagrams: 11/01/19 20:27 11/01/19 20: Lab Results 11/01/19 11/01/19 11/01/19 Range/Units 20:27 20: 20:27 WBC 19.2 H (3.8-10.6) k/uL RBC 4.88 (3.80-5.40) m/uL Hgb 14.5 (11.4-16.0) gm/dL Hct 44.7 (34.0-46.0) % MCV 91.6 (80.0-100.0) fL MCH 29.6 (25.0-35.0) pg MCHC 32.3 (31.0-37.0) g/dL RDW 12.8 (11.5-15.5) % Plt Count 499 H (150-450) k/uL Neutrophils % 83 % Lymphocytes % 11 % Monocytes % 4 % Eosinophils % 1 % Basophils % 0 % Neutrophils # 15.9 H (1.3-7.7) k/uL Lymphocytes # 2.0 (1.0-4.8) k/uL Monocytes # 0.8 (0-1.0) k/uL Eosinophils # 0.3 (0-0.7) k/uL Basophils # 0.1 (0-0.2) k/uL Sodium 138 (137-145) mmol/L Potassium 3.9 (3.5-5.1) mmol/L Chloride 106 (98-107) mmol/L Carbon Dioxide 24 (22-30) mmol/L Anion Gap 8 mmol/L BUN 10 (7-17) mg/dL Creatinine 0.49 L (0.52-1.04) mg/dL Est GFR (CKD-EPI)AfAm >90 (>60 ml/min/1.73 sqM) Est GFR (CKD-EPI)NonAf >90 (>60 ml/min/1.73 sqM) Glucose 110 H (74-99) mg/dL Plasma Lactic Acid Sai (0.7-2.0) mmol/L Calcium 9.1 (8.4-10.2) mg/dL Total Bilirubin 0.4 (0.2-1.3) mg/dL AST 23 (14-36) U/L ALT 24 (4-34) U/L Alkaline Phosphatase 101 (38-126) U/L C-Reactive Protein 145.3 H (<10.0) mg/L Total Protein 6.7 (6.3-8.2) g/dL Albumin 3.6 (3.5-5.0) g/dL Lipase 26 (23-300) U/L Urine Color Yellow Urine Appearance Cloudy H (Clear) Urine pH 6.5 (5.0-8.0) Ur Specific [place] 1.022 (1.001-1.035) Urine Protein 1+ H (Negative) Urine Glucose (UA) Negative (Negative) Urine Ketones Negative (Negative) Urine Blood Moderate H (Negative) Urine Nitrite Negative (Negative) Urine Bilirubin Negative (Negative) Urine Urobilinogen 2.0 (<2.0) mg/dL Ur Leukocyte Esterase Small H (Negative) Urine RBC 28 H (0-5) /hpf Urine WBC 7 H (0-5) /hpf Ur Squamous Epith Cells 2 (0-4) /hpf Urine Mucus Few H (None) /hpf 11/01/19 Range/Units 20:27 WBC (3.8-10.6) k/uL RBC (3.80-5.40) m/uL Hgb (11.4-16.0) gm/dL Hct (34.0-46.0) % MCV (80.0-100.0) fL MCH (25.0-35.0) pg MCHC (31.0-37.0) g/dL RDW (11.5-15.5) % Plt Count (150-450) k/uL Neutrophils % % Lymphocytes % % Monocytes % % Eosinophils % % Basophils % % Neutrophils # (1.3-7.7) k/uL Lymphocytes # (1.0-4.8) k/uL Monocytes # (0-1.0) k/uL Eosinophils # (0-0.7) k/uL Basophils # (0-0.2) k/uL Sodium (137-145) mmol/L Potassium (3.5-5.1) mmol/L Chloride (98-107) mmol/L Carbon Dioxide (22-30) mmol/L Anion Gap mmol/L BUN (7-17) mg/dL Creatinine (0.52-1.04) mg/dL Est GFR (CKD-EPI)AfAm (>60 ml/min/1.73 sqM) Est GFR (CKD-EPI)NonAf (>60 ml/min/1.73 sqM) Glucose (74-99) mg/dL Plasma Lactic Acid Sai 1.0 (0.7-2.0) mmol/L Calcium (8.4-10.2) mg/dL Total Bilirubin (0.2-1.3) mg/dL AST (14-36) U/L ALT (4-34) U/L Alkaline Phosphatase (38-126) U/L C-Reactive Protein (<10.0) mg/L Total Protein (6.3-8.2) g/dL Albumin (3.5-5.0) g/dL Lipase (23-300) U/L Urine Color Urine Appearance (Clear) Urine pH (5.0-8.0) Ur Specific [place] (1.001-1.035) Urine Protein (Negative) Urine Glucose (UA) (Negative) Urine Ketones (Negative) Urine Blood (Negative) Urine Nitrite (Negative) Urine Bilirubin (Negative) Urine Urobilinogen (<2.0) mg/dL Ur Leukocyte Esterase (Negative) Urine RBC (0-5) /hpf Urine WBC (0-5) /hpf Ur Squamous Epith Cells (0-4) /hpf Urine Mucus (None) /hpf Disposition Clinical Impression: Diverticulitis of intestine with abscess Disposition: ADMITTED IP TO THIS HOSP Condition: Serious Is patient prescribed a controlled substance at d/c from ED?: No Referrals: Joann Renee MD [Primary Care Provider] - 1-2 days
[2019-11-01] MEDS ORDERED: VANCOMYCIN IV PER PHARMACY 1 EACH MISC MISCELLANE PRN (22:39)
[2019-11-01] MEDS ORDERED: NALOXONE 0.4 MG/ML 1 ML VIAL IV PRN (22:53)
[2019-11-01] MEDS ORDERED: PIPERACILLIN-TAZOBACTAM 3.375 GM in SODIUM CHLORIDE 0.9% 100 ML IVPB ONE (23:00)
[2019-11-01] MEDS: VANCOMYCIN 1,750 MG in SODIUM CHLORIDE 0.9% 500 ML 500 ML IVPB ONE (23:02)
[2019-11-01] MEDS: SODIUM CHLORIDE 0.9% 1,000 ML IV SCH (23:18)
[2019-11-02] MEDS: VANCOMYCIN 1,750 MG in SODIUM CHLORIDE 0.9% 500 ML 500 ML IVPB ONE (00:05)
[2019-11-02] MEDS: HYDROmorphone 0.5 MG/0.5 ML SYRINGE IVP PRN ×4 (01:50→14:10)
[2019-11-02] MEDS ORDERED: VANCOMYCIN 1,500 MG in SODIUM CHLORIDE 0.9% 250 ML IVPB SCH (07:00)
[2019-11-02] MEDS: SODIUM CHLORIDE 0.9% 1,000 ML IV SCH (07:38)
[2019-11-02] MEDS ORDERED: ONDANSETRON 4 MG/2 ML VIAL IVP PRN (09:35)
--- NOTE | 2019-11-02 11:07 | P.GSHP ---
<Guera Juarez - Last Filed: 11/02/19 10:54> History of Present Illness H&P Date: 11/02/19 CHIEF COMPLAINT: Left lower quadrant abdominal pain HISTORY OF PRESENT ILLNESS: This is a 49-year-old female with a known history of diverticulosis, colon polyps and last colonoscopy in August 2018. Patient was just recently hospitalized and [facility] for diverticulitis with abscess and had been discharged on 10/26/2019 with IV Invanz. Also on that admission her CAT scan had revealed hydropic gallbladder with 1.6 cm gallbladder neck calculus. Patient reports that she had been taking the antibiotics daily as prescribed. She reports that she started having increasing left lower quadrant abdominal pain and not feeling well. The pain became increasingly sharp and she rates it 7 out of 10. Patient reports that the left lower quadrant pain radiated to the mid lower abdomen as well as to the left side of her back. She denies any fevers. Denies any chills or sweats. She does report severe nausea and having some diarrhea. She denies any blood in her stools. She had a computed tomography scan of the abdomen and pelvis done on 10/31/2019 that did show persistent changes of acute diverticulitis involving the mid to distal sigmoid colon. Severe inflammatory changes seen and again appears to be a intramural abscess measuring 3.3 cm. There is also likely multiple additional small intramural or peridiverticular abscesses. Patient has been admitted to the hospital and started on IV antibiotics in the form of vancomycin. Also ID Consult. PAST MEDICAL HISTORY: See list. PAST SURGICAL HISTORY: See list. MEDICATIONS: See list. ALLERGIES: See list. SOCIAL HISTORY: No illicit drug use. REVIEW OF SYSTEMS: CONSTITUTIONAL: Denies fever or chills. HEENT: Denies blurred vision, vision changes, or eye pain. Denies hemoptysis CARDIOVASCULAR: Denies chest pain or pressure. RESPIRATORY: No shortness of breath. GASTROINTESTINAL: See HPI for pertinent findings HEMATOLOGIC: Denies bleeding disorders. GENITOURINARY: Denies any blood in urine or increased urinary frequency. SKIN: Denies pruitis. Denies rash. PHYSICAL EXAM: VITAL SIGNS: Reviewed GENERAL: Well-developed in no acute distress. HEENT: No sclera icterus. Extraocular movements grossly intact. Moist buccal mucosa. Head is atraumatic, normocephalic. No nasal drainage. ABDOMEN: Soft. Nondistended. Tenderness to palpation of the left lower quadrant. NEUROLOGIC: Alert and oriented. Cranial nerves II through XII grossly intact. LABORATORY DATA: WBC 19.2 hemoglobin 14.5 lactic 1.0 AST 23 ALT 24 lipase 26 IMAGING: Computed tomography scan abdomen and pelvis from 10/31/2019 showing persistent changes of acute diverticulitis involving the mid to distal sigmoid colon. Severe inflammatory changes are seen and again there appears to be in intramural abscess measuring 3.3 cm. There likely are multiple additional small intramural or peridiverticular abscesses ranging from 1.7-2.3 cm in size. Gallbladder hydrops with 1.6 cm gallstone in the neck of the gallbladder. Mild extrahepatic biliary dilation noted. Stable left renal pelvic calcification. Stable left adrenal nodule. ASSESSMENT: 1. Acute diverticulitis of the mid to distal sigmoid colon with intramural abscess and multiple additional small intramural or peridiverticular abscesses 2. Gallbladder hydrops with 1.6 cm gallstone in the neck of the gallbladder 3. History of diverticulosis PLAN: -Recommend conservative treatment -Keep patient nothing by mouth and bowel rest -IV antibiotics per ID -Continue IV fluids -Continue Dilaudid as needed for pain control -Continue Zofran as needed for nausea -GI prophylaxis Protonix and DVT prophylaxis subcu heparin Physician Outside Machinist Apprentice note has been reviewed by physician. Signing provider agrees with the documented findings, assessment, and plan of care. Past Medical History Past Medical History: No Reported History Additional Past Medical History / Comment(s): loose stools after eating History of Any Multi-Drug Resistant Organisms: None Reported Past Surgical History: No Surgical Hx Reported Additional Past Surgical History / Comment(s): surgery for ectopic Past Anesthesia/Blood Transfusion Reactions: No Reported Reaction Past Psychological History: No Psychological Hx Reported Smoking Status: Former smoker Past Alcohol Use History: Rare Past Drug Use History: None Reported - Past Family History Mother Family Medical History: Cancer Additional Family Medical History / Comment(s): stomach Brother(s) Family Medical History: Cancer Additional Family Medical History / Comment(s): brain cancer Father Family Medical History: CVA/TIA Medications and Allergies Home Medications Medication Instructions Recorded Confirmed Type Ertapenem [INVanz] 1 gm IVPB Q24H #12 bag 10/26/19 11/01/19 Rx Acetaminophen Tab [Tylenol] 650 mg PO Q4-6H PRN 11/01/19 11/01/19 History Allergies Allergy/AdvReac Type Severity Reaction Status Date / Time No Known Allergies Allergy Verified 11/01/19 20:15 Surgical - Exam Vital Signs Temp Pulse Resp BP Pulse Ox 98.2 F 90 18 139/89 96 11/01/19 18:40 11/01/19 18:40 11/01/19 18:40 11/01/19 18:40 11/01/19 18:40 Results - Labs 11/01/19 20:27 11/01/19 20:27 Abnormal Lab Results - Last 24 Hours (Table) 11/01/19 11/01/19 11/01/19 Range/Units 20:27 20:27 20:27 WBC 19.2 H (3.8-10.6) k/uL Plt Count 499 H (150-450) k/uL Neutrophils # 15.9 H (1.3-7.7) k/uL Creatinine 0.49 L (0.52-1.04) mg/dL Glucose 110 H (74-99) mg/dL C-Reactive Protein 145.3 H (<10.0) mg/L Urine Appearance Cloudy H (Clear) Urine Protein 1+ H (Negative) Urine Blood Moderate H (Negative) Ur Leukocyte Esterase Small H (Negative) Urine RBC 28 H (0-5) /hpf Urine WBC 7 H (0-5) /hpf Urine Mucus Few H (None) /hpf Diabetes panel 11/01/19 Range/Units 20:27 Sodium 138 (137-145) mmol/L Potassium 3.9 (3.5-5.1) mmol/L Chloride 106 (98-107) mmol/L Carbon Dioxide 24 (22-30) mmol/L BUN 10 (7-17) mg/dL Creatinine 0.49 L (0.52-1.04) mg/dL Glucose 110 H (74-99) mg/dL Calcium 9.1 (8.4-10.2) mg/dL AST 23 (14-36) U/L ALT 24 (4-34) U/L Alkaline Phosphatase 101 (38-126) U/L Total Protein 6.7 (6.3-8.2) g/dL Albumin 3.6 (3.5-5.0) g/dL Calcium panel 11/01/19 Range/Units 20:27 Calcium 9.1 (8.4-10.2) mg/dL Albumin 3.6 (3.5-5.0) g/dL Pituitary panel 11/01/19 Range/Units 20:27 Sodium 138 (137-145) mmol/L Potassium 3.9 (3.5-5.1) mmol/L Chloride 106 (98-107) mmol/L Carbon Dioxide 24 (22-30) mmol/L BUN 10 (7-17) mg/dL Creatinine 0.49 L (0.52-1.04) mg/dL Glucose 110 H (74-99) mg/dL Calcium 9.1 (8.4-10.2) mg/dL Adrenal panel 11/01/19 Range/Units 20:27 Sodium 138 (137-145) mmol/L Potassium 3.9 (3.5-5.1) mmol/L Chloride 106 (98-107) mmol/L Carbon Dioxide 24 (22-30) mmol/L BUN 10 (7-17) mg/dL Creatinine 0.49 L (0.52-1.04) mg/dL Glucose 110 H (74-99) mg/dL Calcium 9.1 (8.4-10.2) mg/dL Total Bilirubin 0.4 (0.2-1.3) mg/dL AST 23 (14-36) U/L ALT 24 (4-34) U/L Alkaline Phosphatase 101 (38-126) U/L Total Protein 6.7 (6.3-8.2) g/dL Albumin 3.6 (3.5-5.0) g/dL <Joseph Drew - Last Filed: 11/02/19 14:44> History of Present Illness As above. Patient readmitted with acute diverticulitis. CAT scan suggests some enlargement to the intramural abscess in the sigmoid colon. No evidence of perforation. Patient feels better today. She is afebrile. White blood cell count elevated at 19,000 yesterday. Clinical scenario discussed in detail with the patient. Operative and nonoperative approaches discussed once again. For now we'll continue with a nonoperative approach unless symptoms persist or worsen. Continue IV antibiotics. Await formal infectious disease consultation. Continue clear liquids only for now. We'll monitor closely. Surgical - Exam Vital Signs Temp Pulse Resp BP Pulse Ox 98.2 F 90 18 139/89 96 09/17/20 18:40 11/01/19 18:40 11/01/19 18:40 11/01/19 18:40 11/01/19 18:40 Results - Labs 11/01/19 20:27 11/01/19 20:27 Abnormal Lab Results - Last 24 Hours (Table) 11/01/19 11/01/19 11/01/19 Range/Units 20:27 20:27 20:27 WBC 19.2 H (3.8-10.6) k/uL Plt Count 499 H (150-450) k/uL Neutrophils # 15.9 H (1.3-7.7) k/uL Creatinine 0.49 L (0.52-1.04) mg/dL Glucose 110 H (74-99) mg/dL C-Reactive Protein 145.3 H (<10.0) mg/L Urine Appearance Cloudy H (Clear) Urine Protein 1+ H (Negative) Urine Blood Moderate H (Negative) Ur Leukocyte Esterase Small H (Negative) Urine RBC 28 H (0-5) /hpf Urine WBC 7 H (0-5) /hpf Urine Mucus Few H (None) /hpf Diabetes panel 11/01/19 Range/Units 20:27 Sodium 138 (137-145) mmol/L Potassium 3.9 (3.5-5.1) mmol/L Chloride 106 (98-107) mmol/L Carbon Dioxide 24 (22-30) mmol/L BUN 10 (7-17) mg/dL Creatinine 0.49 L (0.52-1.04) mg/dL Glucose 110 H (74-99) mg/dL Calcium 9.1 (8.4-10.2) mg/dL AST 23 (14-36) U/L ALT 24 (4-34) U/L Alkaline Phosphatase 101 (38-126) U/L Total Protein 6.7 (6.3-8.2) g/dL Albumin 3.6 (3.5-5.0) g/dL Calcium panel 11/01/19 Range/Units 20:27 Calcium 9.1 (8.4-10.2) mg/dL Albumin 3.6 (3.5-5.0) g/dL Pituitary panel 11/01/19 Range/Units 20:27 Sodium 138 (137-145) mmol/L Potassium 3.9 (3.5-5.1) mmol/L Chloride 106 (98-107) mmol/L Carbon Dioxide 24 (22-30) mmol/L BUN 10 (7-17) mg/dL Creatinine 0.49 L (0.52-1.04) mg/dL Glucose 110 H (74-99) mg/dL Calcium 9.1 (8.4-10.2) mg/dL Adrenal panel 11/01/19 Range/Units 20:27 Sodium 138 (137-145) mmol/L Potassium 3.9 (3.5-5.1) mmol/L Chloride 106 (98-107) mmol/L Carbon Dioxide 24 (22-30) mmol/L BUN 10 (7-17) mg/dL Creatinine 0.49 L (0.52-1.04) mg/dL Glucose 110 H (74-99) mg/dL Calcium 9.1 (8.4-10.2) mg/dL Total Bilirubin 0.4 (0.2-1.3) mg/dL AST 23 (14-36) U/L ALT 24 (4-34) U/L Alkaline Phosphatase 101 (38-126) U/L Total Protein 6.7 (6.3-8.2) g/dL Albumin 3.6 (3.5-5.0) g/dL
--- NOTE | 2019-11-02 11:07 | P.CONS ---
History of Present Illness - Reason for Consult Consult date: 11/02/19 Medical management Requesting physician: Joseph Drew - History of Present Illness HISTORY OF PRESENT ILLNESS This is a 49-year-old female who was recently hospitalized October 21 through the for diverticulitis with abscess formation. She was discharged home with IV Invanz and followed by Dr. Collins. No surgical intervention was done at that time. Patient states that she has been in contact with Dr. Collins over the phone. She has been on IV antibiotics and has not missed any doses. She states she has had increasing pain that's significantly worse to the left lower quadrant that goes across her lower abdomen and into her back. On October 30, patient underwent an outpatient CAT scan with contrast of the abdomen and pelvis which revealed persistent changes of acute diverticulitis involving the mid to distal sigmoid colon. Severe inflammatory changes seen and appears to be an intramural abscess measuring 3.3 cm. Likely there are multiple additional small intramural or. Diverticular abscesses ranging in size from 1.7-2.3 cm. Gallbladder hydrops. She came into [facility] emergency center for evaluation. She was found to be afebrile, heart rate 90, blood pressure 139/89, pulse ox 96% on room air. EKG was a sinus rhythm with sinus arrhythmia, no acute ST changes. WBC 19.2, hemoglobin 14.5, electrolytes normal, creatinine 0.49. C-reactive protein 145.3. Liver function tests normal. Urinalysis cloudy, blood moderate, leukoesterase small. Chest x-ray reveals mild bilateral subsegmental atelectasis. Normal heart. KUB revealed possible calcified gallstone unchanged. Non-acute abdomen. Ultrasound of the left lower extremity is negative for DVT. Patient admitted under the care of Dr. Drew. She is currently on vancomycin and Zosyn will be added. Consult in place with Dr. Collins. Patient is currently nothing by mouth status, blood culture has been obtained. REVIEW OF SYSTEMS Constitutional: No fever, no chills, no night sweats. No weight change. Reports generalized fatigue and malaise. No daytime sleepiness. EENT: No headache. No blurred vision or double vision, no loss of vision. No dizziness. No nasal drainage or congestion. No epistaxis. No sore throat. Lungs: No shortness of breath, cough, no sputum production. No wheezing. Cardiovascular: No chest pain, no lower extremity edema. No palpitations. No paroxysmal nocturnal dyspnea. No orthopnea. No lightheadedness or dizziness. No syncopal episodes. Abdominal: Reports abdominal pain. No nausea, vomiting. No diarrhea. No constipation. No bloody or tarry stools reports loss of appetite. Genitourinary: Denies dysuria, frequency, urgency. No urinary retention. Musculoskeletal: No myalgias. No muscle weakness, no gait dysfunction, no frequent falls. No back pain. No neck pain. Integumentary: No wounds, no lesions. No rash or pruritus. No unusual bruising. No change in hair or nails. Neurologic: No aphasia. No facial droop. No change in mentation. No head injury. No headache. No paralysis. No paresthesia. Psychiatric: No depression. No anxiety. No mood swings. Endocrine: No abnormal blood sugars. No weight change. PHYSICAL EXAMINATION Gen: This is a 49-year-old female. Patient is resting on ER stretcher and appears to be slightly comfortable but in no acute distress. No respiratory distress noted. HEENT: Head is atraumatic, normocephalic. Pupils equal, round. Sclerae is anicteric. NECK: Supple. No JVD. No lymphadenopathy. No thyromegaly. LUNGS: Clear to auscultation. No wheezes or rhonchi. No intercostal retractions. HEART: Regular rate and rhythm. No murmur. ABDOMEN: Soft. Bowel sounds are present. No masses. Left lower quadrant tenderness. EXTREMITIES: No pedal edema. No calf tenderness. Dorsalis pedis +2 bilateral ly. NEUROLOGICAL: Patient is awake, alert and oriented x3. Cranial nerves 2 through 12 are grossly intact. ASSESSMENT AND PLAN 1. Acute diverticular abscesses. Patient is currently nothing by mouth, continue IV fluids, continue current pain medicine. Continue vancomycin and and Zosyn until patient is seen by Dr. Collins. Zofran as needed for nausea. Consults in place with infectious disease. Incentive spirometry to reduce the risk of atelectasis and hospital-acquired pneumonia. 2. Hydropic gallbladder with gallbladder neck calculus. 3. Hepatomegaly. 4. Adenoma of the left adrenal gland, recommend follow-up in 6 months. 5. DVT prophylaxis. Heparin subcu. 6. GI prophylaxis. Protonix. Discharge plan: home Patient will be admitted to the hospital for a minimum of 2 night stay. Impression and plan of care have been directed as dictated by the signing physician. Siobhan Novak nurse practitioner acting as scribe for signing physician. Past Medical History Past Medical History: No Reported History Additional Past Medical History / Comment(s): loose stools after eating History of Any Multi-Drug Resistant Organisms: None Reported Past Surgical History: No Surgical Hx Reported Additional Past Surgical History / Comment(s): surgery for ectopic Past Anesthesia/Blood Transfusion Reactions: No Reported Reaction Past Psychological History: No Psychological Hx Reported Smoking Status: Former smoker Past Alcohol Use History: Rare Past Drug Use History: None Reported - Past Family History Mother Family Medical History: Cancer Additional Family Medical History / Comment(s): stomach Brother(s) Family Medical History: Cancer Additional Family Medical History / Comment(s): brain cancer Father Family Medical History: CVA/TIA Medications and Allergies Home Medications Medication Instructions Recorded Confirmed Type Ertapenem [INVanz] 1 gm IVPB Q24H #12 bag 10/26/19 11/01/19 Rx Acetaminophen Tab [Tylenol] 650 mg PO Q4-6H PRN 11/01/19 11/01/19 History Allergies Allergy/AdvReac Type Severity Reaction Status Date / Time No Known Allergies Allergy Verified 11/01/19 20:15 Physical Exam Vitals: Vital Signs Temp Pulse Resp BP Pulse Ox 11/02/19 01:56 98.4 F 86 19 119/72 96 11/01/19 18:40 98.2 F 90 18 139/89 96 Intake and Output 11/01/19 11/02/19 11/02/19 22:59 06:59 14:59 Other: Weight 98.43 kg Results CBC & Chem 7: 11/01/19 20:27 11/01/19 20:27 Labs: Abnormal Lab Results - Last 24 Hours (Table) 11/01/19 11/01/19 11/01/19 Range/Units 20:27 20:27 20:27 WBC 19.2 H (3.8-10.6) k/uL Plt Count 499 H (150-450) k/uL Neutrophils # 15.9 H (1.3-7.7) k/uL Creatinine 0.49 L (0.52-1.04) mg/dL Glucose 110 H (74-99) mg/dL C-Reactive Protein 145.3 H (<10.0) mg/L Urine Appearance Cloudy H (Clear) Urine Protein 1+ H (Negative) Urine Blood Moderate H (Negative) Ur Leukocyte Esterase Small H (Negative) Urine RBC 28 H (0-5) /hpf Urine WBC 7 H (0-5) /hpf Urine Mucus Few H (None) /hpf
[2019-11-02] MEDS ORDERED: PIPERACILLIN-TAZOBACTAM 3.375 GM in SODIUM CHLORIDE 0.9% 100 ML IVPB SCH (11:15)
[2019-11-02] MEDS: HEPARIN SODIUM,PORCINE 5,000 UNIT/ML 1 ML VIAL SQ SCH (20:46)
[2019-11-02] MEDS: PIPERACILLIN-TAZOBACTAM 3.375 GM in SODIUM CHLORIDE 0.9% 100 ML IVPB SCH (21:04)
[2019-11-03] MEDS: SODIUM CHLORIDE 0.9% 1,000 ML IV SCH ×5 (00:19→21:26)
[2019-11-03] MEDS: PIPERACILLIN-TAZOBACTAM 3.375 GM in SODIUM CHLORIDE 0.9% 100 ML IVPB SCH ×3 (05:05→21:26)
[2019-11-03 07:26] LABS: Basophils % (A) 0 %; Eosinophils # (A) 0.2 k/uL (0-0.7); Eosinophils % (A) 2 %; HCT 37.4 % (34.0-46.0); HGB 11.8 gm/dL (11.4-16.0); Lymphocytes # (A) 1.8 k/uL (1.0-4.8); Lymphocytes % (A) 15 %; MCH 29.4 pg (25.0-35.0); MCHC 31.5 g/dL (31.0-37.0); MCV 93.1 fL (80.0-100.0); Mean Platelet Volume 7.4; Monocytes # (A) 0.7 k/uL (0-1.0); Monocytes % (A) 7 %; Neutrophils # (A) 8.6 k/uL (1.3-7.7); Neutrophils % (A) 75 %; Platelet Count 406 k/uL (150-450); RBC 4.01 m/uL (3.80-5.40); RDW 12.8 % (11.5-15.5); WBC 11.5 k/uL (3.8-10.6)
[2019-11-03 07:36] LABS: African American GFR (CKD) >90 (>60 ml/min/1.73 sqM); Anion Gap 7 mmol/L; Blood Urea Nitrogen 10 mg/dL (7-17); Calcium 8.5 mg/dL (8.4-10.2); Carbon Dioxide 25 mmol/L (22-30); Chloride 110 mmol/L (98-107); Glucose 90 mg/dL (74-99); Non-African American GFR(CKD) 88 (>60 ml/min/1.73 sqM); Potassium 3.4 mmol/L (3.5-5.1); Sodium 142 mmol/L (137-145)
[2019-11-03] MEDS: HEPARIN SODIUM,PORCINE 5,000 UNIT/ML 1 ML VIAL SQ SCH ×2 (09:02→21:26)
[2019-11-03] MEDS: PANTOPRAZOLE 40 MG/10 ML VIAL IVP SCH (09:02)
--- NOTE | 2019-11-03 11:43 | PN ---
PROGRESS NOTE DATE OF SERVICE: 11/03/2019 REASON FOR FOLLOWUP: Acute diverticulitis abscess. INTERVAL HISTORY: The patient is currently afebrile. The patient is feeling better. Breathing comfortably. Denies having any chest pain or shortness of breath or cough. Abdominal pain is currently improved. No nausea, vomiting or diarrhea. EXAM: Blood pressure 132/76, pulse of 75, temperature 97.8. She is 95% on room air. General description is a middle-aged female lying in bed in no distress. Respiratory system: Unlabored breathing. Clear to auscultation anteriorly. Heart S1, S2. Regular rate and rhythm. ABDOMEN: Soft, no tenderness. LABS: Hemoglobin 11.1, white count 11.5, creatinine 0.79. Blood culture negative. DIAGNOSTIC IMPRESSION AND PLAN: Patient with sigmoid diverticulitis, admitted to the hospital with worsening symptoms. CT did show an abscess. Clinically improved on Zosyn to continue while monitoring clinical course closely. Continue supportive care. MMODL / IJN: [id number] /
--- NOTE | 2019-11-03 11:58 | P.PN ---
Subjective Progress Note Date: 11/03/19 HISTORY OF PRESENT ILLNESS This is a 49-year-old female who was recently hospitalized October 21 through the for diverticulitis with abscess formation. She was discharged home with IV Invanz and followed by Dr. Collins. No surgical intervention was done at that time. Patient states that she has been in contact with Dr. Collins over the phone. She has been on IV antibiotics and has not missed any doses. She states she has had increasing pain that's significantly worse to the left lower quadrant that goes across her lower abdomen and into her back. On October 30, patient underwent an outpatient CAT scan with contrast of the abdomen and pelvis which revealed persistent changes of acute diverticulitis involving the mid to distal sigmoid colon. Severe inflammatory changes seen and appears to be an intramural abscess measuring 3.3 cm. Likely there are multiple additional small intramural or. Diverticular abscesses ranging in size from 1.7-2.3 cm. Gallbladder hydrops. She came into [facility] emergency center for evaluation. She was found to be afebrile, heart rate 90, blood pressure 139/89, pulse ox 96% on room air. EKG was a sinus rhythm with sinus arrhythmia, no acute ST changes. WBC 19.2, hemoglobin 14.5, electrolytes normal, creatinine 0.49. C-reactive protein 145.3. Liver function tests normal. Urinalysis cloudy, blood moderate, leukoesterase small. Chest x-ray reveals mild bilateral subsegmental atelectasis. Normal heart. KUB revealed possible calcified gallstone unchanged. Non-acute abdomen. Ultrasound of the left lower extremity is negative for DVT. Patient admitted under the care of Dr. Drew. She is currently on vancomycin and Zosyn will be added. Consult in place with Dr. Collins. Patient is currently nothing by mouth status, blood culture has been obtained. 11/02: Patient is resting comfortably in bed without any acute distress. Patient states that she is any increased pain in her diet has been advanced from clear liquids to full liquids. She is tolerating with no nausea or vomiting. Patient has had a bowel movement without any blood noted. Patient is afebrile, heart rate 75, respiration 20, blood pressure 130/76 pulse ox 96% on room air. CBC 11.5, hemoglobin 11.8, potassium is 3.4. REVIEW OF SYSTEMS Constitutional: No fever, no chills, no night sweats. No weight change. Reports generalized fatigue and malaise. No daytime sleepiness. EENT: No headache. No blurred vision or double vision, no loss of vision. No dizziness. No nasal drainage or congestion. No epistaxis. No sore throat. Lungs: No shortness of breath, cough, no sputum production. No wheezing. Cardiovascular: No chest pain, no lower extremity edema. No palpitations. No paroxysmal nocturnal dyspnea. No orthopnea. No lightheadedness or dizziness. No syncopal episodes. Abdominal: Reports abdominal pain. No nausea, vomiting. No diarrhea. No constipation. No bloody or tarry stools reports loss of appetite. Genitourinary: Denies dysuria, frequency, urgency. No urinary retention. Musculoskeletal: No myalgias. No muscle weakness, no gait dysfunction, no frequent falls. No back pain. No neck pain. Integumentary: No wounds, no lesions. No rash or pruritus. No unusual bruising. No change in hair or nails. Neurologic: No aphasia. No facial droop. No change in mentation. No head injury. No headache. No paralysis. No paresthesia. Psychiatric: No depression. No anxiety. No mood swings. Endocrine: No abnormal blood sugars. No weight change. PHYSICAL EXAMINATION Gen: This is a 49-year-old female. Patient is resting on ER stretcher and appears to be slightly comfortable but in no acute distress. No respiratory distress noted. HEENT: Head is atraumatic, normocephalic. Pupils equal, round. Sclerae is anicteric. NECK: Supple. No JVD. No lymphadenopathy. No thyromegaly. LUNGS: Clear to auscultation. No wheezes or rhonchi. No intercostal retractions. HEART: Regular rate and rhythm. No murmur. ABDOMEN: Soft. Bowel sounds are present. No masses. Left lower quadrant tenderness. EXTREMITIES: No pedal edema. No calf tenderness. Dorsalis pedis +2 bilaterally. NEUROLOGICAL: Patient is awake, alert and oriented x3. Cranial nerves 2 through 12 are grossly intact. ASSESSMENT AND PLAN 1. Acute diverticular abscesses. Patient is currently nothing by mouth, continue IV fluids, continue current pain medicine. Continue vancomycin and and Zosyn until patient is seen by Dr. Dennis. Zofran as needed for nausea. Consults in place with infectious disease. Incentive spirometry to reduce the risk of atelectasis and hospital-acquired pneumonia. 2. Hydropic gallbladder with gallbladder neck calculus. 3. Hepatomegaly. 4. Adenoma of the left adrenal gland, recommend follow-up in 6 months. 5. Hypokalemia. Repeat labs in the morning. 6. DVT prophylaxis. Heparin subcu. 7. GI prophylaxis. Protonix. Discharge plan: home Patient will be admitted to the hospital for a minimum of 2 night stay. Impression and plan of care have been directed as dictated by the signing physician. Ngoc Davidson nurse practitioner acting as scribe for signing physician. Objective - Vital Signs Vital signs: Vital Signs Temp 97.8 F 11/03/19 08:32 Pulse 75 11/03/19 08:32 Resp 20 11/03/19 08:32 BP 138/76 11/03/19 08:32 Pulse Ox 95 11/03/19 08:32 Intake & Output 11/02/19 11/03/19 11/03/19 18:59 06:59 18:59 Intake Total 520 Balance 520 Weight 98.43 kg Intake: Intake, IV Titration 520 Amount Sodium Chloride 0.9% 1, 520 000 ml @ 999 mls/hr IV . Q1H1M STA Rx#:[id number] Other: Voiding Method Toilet # Voids 2 1 - Labs CBC & Chem 7: 11/03/19 06:56 11/03/19 06:56 Labs: Abnormal Lab Results - Last 24 Hours (Table) 11/03/19 11/03/19 Range/Units 06:56 06:56 WBC 11.5 H (3.8-10.6) k/uL Neutrophils # 8.6 H (1.3-7.7) k/uL Potassium 3.4 L (3.5-5.1) mmol/L Chloride 110 H (98-107) mmol/L Microbiology - Last 24 Hours (Table) 11/01/19 20:27 Blood Culture - Preliminary Blood No Growth after 24 hours
[2019-11-03] MEDS ORDERED: Potassium Replacement Protocol 1 EACH MISC MISCELLANE PRN (12:53)
--- NOTE | 2019-11-03 12:53 | P.PN ---
Subjective Progress Note Date: 11/03/19 She feels much better. Her previous abdominal pain has markedly improved. No nausea or vomiting. ABDOMEN: No peritonitis. No tenderness to light palpation LABS: Reviewed. WBC 11.9 from over 19.2 STUDIES: CT abdomen and pelvis independently reviewed with dense phlegmon along sigmoid colon wall from sigmoid diverticulitis PLAN: 1. Advance to low fiber diet 2. Dietitian consultation for diverticulitis diet. Objective - Vital Signs Vital signs: Vital Signs Temp 97.8 F 11/03/19 08:32 Pulse 75 11/03/19 08:32 Resp 20 11/03/19 08:32 BP 138/76 11/03/19 08:32 Pulse Ox 95 11/03/19 08:32 Intake & Output 11/02/19 11/03/19 11/03/19 18:59 06:59 18:59 Intake Total 520 Balance 520 Weight 98.43 kg Intake: Intake, IV Titration 520 Amount Sodium Chloride 0.9% 1, 520 000 ml @ 999 mls/hr IV . Q1H1M STA Rx#:[id number] Other: Voiding Method Toilet # Voids 2 1 - Labs CBC & Chem 7: 11/03/19 06:56 11/03/19 06:56 Labs: Abnormal Lab Results - Last 24 Hours (Table) 11/03/19 11/03/19 Range/Units 06:56 06:56 WBC 11.5 H (3.8-10.6) k/uL Neutrophils # 8.6 H (1.3-7.7) k/uL Potassium 3.4 L (3.5-5.1) mmol/L Chloride 110 H (98-107) mmol/L Microbiology - Last 24 Hours (Table) 11/01/19 20:27 Blood Culture - Preliminary Blood No Growth after 24 hours
[2019-11-03 13:11] VITALS: BMI 31.1
[2019-11-03] MEDS ORDERED: VANCOMYCIN TROUGH DUE 1 EACH MISC MISCELLANE ONE (14:00)
[2019-11-03] MEDS: POTASSIUM CHLORIDE ER 20 MEQ TAB.ER PO SCH ×2 (14:40→16:27)
[2019-11-04] MEDS: SODIUM CHLORIDE 0.9% 1,000 ML IV SCH ×3 (04:57→22:13)
[2019-11-04] MEDS: PIPERACILLIN-TAZOBACTAM 3.375 GM in SODIUM CHLORIDE 0.9% 100 ML IVPB SCH ×3 (04:57→21:08)
[2019-11-04 07:16] LABS: African American GFR (CKD) >90 (>60 ml/min/1.73 sqM); Non-African American GFR(CKD) >90 (>60 ml/min/1.73 sqM)
[2019-11-04 07:35] LABS: Basophils % (A) 0 %; Eosinophils # (A) 0.1 k/uL (0-0.7); Eosinophils % (A) 1 %; HCT 38.4 % (34.0-46.0); Lymphocytes % (A) 19 %; MCH 29.4 pg (25.0-35.0); MCHC 31.4 g/dL (31.0-37.0); MCV 93.6 fL (80.0-100.0); Mean Platelet Volume 8.2; Monocytes # (A) 0.8 k/uL (0-1.0); Monocytes % (A) 8 %; Neutrophils # (A) 7.2 k/uL (1.3-7.7); Neutrophils % (A) 71 %; Platelet Count 422 k/uL (150-450); RDW 13.1 % (11.5-15.5); WBC 10.2 k/uL (3.8-10.6)
[2019-11-04] MEDS: PANTOPRAZOLE 40 MG/10 ML VIAL IVP SCH (09:20)
[2019-11-04] MEDS: HEPARIN SODIUM,PORCINE 5,000 UNIT/ML 1 ML VIAL SQ SCH ×2 (09:20→21:08)
--- NOTE | 2019-11-04 12:24 | P.PN ---
Subjective Progress Note Date: 11/04/19 HISTORY OF PRESENT ILLNESS This is a 49-year-old female who was recently hospitalized October 21 through the for diverticulitis with abscess formation. She was discharged home with IV Invanz and followed by Dr. Collins. No surgical intervention was done at that time. Patient states that she has been in contact with Dr. Collins over the phone. She has been on IV antibiotics and has not missed any doses. She states she has had increasing pain that's significantly worse to the left lower quadrant that goes across her lower abdomen and into her back. On October 30, patient underwent an outpatient CAT scan with contrast of the abdomen and pelvis which revealed persistent changes of acute diverticulitis involving the mid to distal sigmoid colon. Severe inflammatory changes seen and appears to be an intramural abscess measuring 3.3 cm. Likely there are multiple additional small intramural or. Diverticular abscesses ranging in size from 1.7-2.3 cm. Gallbladder hydrops. She came into [facility] for evaluation. She was found to be afebrile, heart rate 90, blood pressure 139/89, pulse ox 96% on room air. EKG was a sinus rhythm with sinus arrhythmia, no acute ST changes. WBC 19.2, hemoglobin 14.5, electrolytes normal, creatinine 0.49. C-reactive protein 145.3. Liver function tests normal. Urinalysis cloudy, blood moderate, leukoesterase small. Chest x-ray reveals mild bilateral subsegmental atelectasis. Normal heart. KUB revealed possible calcified gallstone unchanged. Non-acute abdomen. Ultrasound of the left lower extremity is negative for DVT. Patient admitted under the care of Dr. Drew. She is currently on vancomycin and Zosyn will be added. Consult in place with Dr. Collins. Patient is currently nothing by mouth status, blood culture has been obtained. 11/02: Patient is resting comfortably in bed without any acute distress. Patient states that she is any increased pain in her diet has been advanced from clear liquids to full liquids. She is tolerating with no nausea or vomiting. Patient has had a bowel movement without any blood noted. Patient is afebrile, heart rate 75, respiration 20, blood pressure 130/76 pulse ox 96% on room air. CBC 11.5, hemoglobin 11.8, potassium is 3.4. 11/03: Patient is found ambulatory in room without any difficulties. Patient has had no bowel movements without any blood or pain. Patient is tolerating a low- fat diet and low fiber without any difficulties. Patient denies any nausea vomiting or pain at this time. Patient has been afebrile. Heart rate 60, respirations 18, blood pressure 1 3544, 97% on room air. REVIEW OF SYSTEMS Constitutional: No fever, no chills, no night sweats. No weight change. Reports generalized fatigue and malaise. No daytime sleepiness. EENT: No headache. No blurred vision or double vision, no loss of vision. No dizziness. No nasal drainage or congestion. No epistaxis. No sore throat. Lungs: No shortness of breath, cough, no sputum production. No wheezing. Cardiovascular: No chest pain, no lower extremity edema. No palpitations. No paroxysmal nocturnal dyspnea. No orthopnea. No lightheadedness or dizziness. No syncopal episodes. Abdominal: Reports abdominal pain. No nausea, vomiting. No diarrhea. No constipation. No bloody or tarry stools reports loss of appetite. Genitourinary: Denies dysuria, frequency, urgency. No urinary retention. Musculoskeletal: No myalgias. No muscle weakness, no gait dysfunction, no frequent falls. No back pain. No neck pain. Integumentary: No wounds, no lesions. No rash or pruritus. No unusual bruising. No change in hair or nails. Neurologic: No aphasia. No facial droop. No change in mentation. No head injury. No headache. No paralysis. No paresthesia. Psychiatric: No depression. No anxiety. No mood swings. Endocrine: No abnormal blood sugars. No weight change. PHYSICAL EXAMINATION Gen: This is a 49-year-old female. Patient is resting on ER stretcher and appears to be slightly comfortable but in no acute distress. No respiratory distress noted. HEENT: Head is atraumatic, normocephalic. Pupils equal, round. Sclerae is anicteric. NECK: Supple. No JVD. No lymphadenopathy. No thyromegaly. LUNGS: Clear to auscultation. No wheezes or rhonchi. No intercostal retra ctions. HEART: Regular rate and rhythm. No murmur. ABDOMEN: Soft. Bowel sounds are present. No masses. Left lower quadrant tenderness. EXTREMITIES: No pedal edema. No calf tenderness. Dorsalis pedis +2 bilaterally. NEUROLOGICAL: Patient is awake, alert and oriented x3. Cranial nerves 2 through 12 are grossly intact. ASSESSMENT AND PLAN 1. Acute diverticular abscesses. Patient is currently nothing by mouth, continue IV fluids, continue current pain medicine. Continue vancomycin and and Zosyn until patient is seen by Dr. Collins. Zofran as needed for nausea. Co nsults in place with infectious disease. Incentive spirometry to reduce the risk of atelectasis and hospital-acquired pneumonia. 2. Hydropic gallbladder with gallbladder neck calculus. 3. Hepatomegaly. 4. Adenoma of the left adrenal gland, recommend follow-up in 6 months. 5. Hypokalemia. Repeat labs in the morning. 6. DVT prophylaxis. Heparin subcu. 7. GI prophylaxis. Protonix. Discharge plan: home, possibly tomorrow Patient will be admitted to the hospital for a minimum of 2 night stay. Impression and plan of care have been directed as dictated by the signing physician. Ngoc Davidson nurse practitioner acting as scribe for signing physician. Objective - Vital Signs Vital signs: Vital Signs Temp 98 F 11/04/19 00:20 Pulse 62 11/04/19 00:20 Resp 18 11/04/19 00:20 BP 135/84 11/04/19 00:20 Pulse Ox 97 11/04/19 00:20 Intake & Output 11/03/19 11/04/19 11/04/19 18:59 06:59 18:59 Intake Total 500 Balance 500 Weight 98.43 kg Intake: Oral 500 Other: Voiding Method Toilet # Voids 3 2 - Labs CBC & Chem 7: 11/04/19 07:03 11/04/19 07:03 Labs: Microbiology - Last 24 Hours (Table) 11/01/19 20:27 Blood Culture - Preliminary Blood No Growth after 48 hours
--- NOTE | 2019-11-04 14:05 | P.PN ---
Subjective Progress Note Date: 11/04/19 Principal diagnosis: She is clinically doing well. She is tolerating low fiber diet. "I feel much better than I did the last time at discharge." Patient is on home IV antibiotics and being followed by infectious disease. ABDOMEN: Nontender. Protuberant LABS: WBC normal PLAN: 1. Disposition home pending IV infusion for antibiotics 2. Continue low fiber diet Objective - Vital Signs Vital signs: Vital Signs Temp 98 F 11/04/19 00:20 Pulse 62 11/04/19 00:20 Resp 18 11/04/19 00:20 BP 135/84 11/04/19 00:20 Pulse Ox 97 11/04/19 00:20 Intake & Output 11/03/19 11/04/19 11/04/19 18:59 06:59 18:59 Intake Total 500 Balance 500 Weight 98.43 kg Intake: Oral 500 Other: Voiding Method Toilet # Voids 3 2 - Labs CBC & Chem 7: 11/04/19 07:03 11/04/19 07:03 Labs: Microbiology - Last 24 Hours (Table) 11/01/19 20:27 Blood Culture - Preliminary Blood No Growth after 48 hours
--- NOTE | 2019-11-04 16:55 | PN ---
PROGRESS NOTE DATE OF SERVICE: 11/04/2019. REASON FOR FOLLOWUP: Acute sigmoid diverticulitis with intramural abscess. INTERVAL HISTORY: Patient is currently afebrile. The patient is feeling better. Breathing comfortably. The patient abdominal pain has resolved and mentioned no need for any pain medication in the last 24 hours. No chest pain, shortness of breath or cough. No nausea, vomiting or diarrhea. PHYSICAL EXAMINATION: Her blood pressure is 118/72 with a pulse of 74, temperature 97.8. She is 98% on room air. General description is a middle-aged female lying in bed in no distress. Respiratory system: Unlabored breathing, clear to auscultation anteriorly. Heart S1, S2. Regular rate and rhythm. Abdomen soft, no tenderness. LABS: Hemoglobin is 12, white count 10.2, creatinine 0.76. Blood culture has been negative. DIAGNOSTIC IMPRESSION AND PLAN: Patient with acute sigmoid diverticulitis, with intramural abscess in this patient who seemed to have shown good response to Zosyn. Antibiotic can be transitioned back to Invanz 1 g daily for another 2 weeks and close outpatient followup. Questions and concerns were answered. MMODL / IJN: [id number] /
[2019-11-05 03:57] LABS: HCT 36.5 % (34.0-46.0); HGB 11.3 gm/dL (11.4-16.0); Hypochromasia Slight; MCH 29.4 pg (25.0-35.0); MCHC 30.9 g/dL (31.0-37.0); MCV 95.1 fL (80.0-100.0); Mean Platelet Volume 7.7; Platelet Count 411 k/uL (150-450); RBC 3.84 m/uL (3.80-5.40); RDW 13.3 % (11.5-15.5); WBC 10.2 k/uL (3.8-10.6)
[2019-11-05 04:09] LABS: African American GFR (CKD) >90 (>60 ml/min/1.73 sqM); Non-African American GFR(CKD) 86 (>60 ml/min/1.73 sqM)
[2019-11-05] MEDS: PIPERACILLIN-TAZOBACTAM 3.375 GM in SODIUM CHLORIDE 0.9% 100 ML IVPB SCH (04:43)
[2019-11-05] MEDS: SODIUM CHLORIDE 0.9% 1,000 ML IV SCH ×2 (04:43→13:10)
[2019-11-05 05:21] VITALS: RESP 16
[2019-11-05] MEDS: PANTOPRAZOLE 40 MG/10 ML VIAL IVP SCH (09:07)
[2019-11-05] MEDS: HEPARIN SODIUM,PORCINE 5,000 UNIT/ML 1 ML VIAL SQ SCH (09:07)
--- NOTE | 2019-11-05 10:06 | P.PN ---
Subjective Progress Note Date: 11/05/19 HISTORY OF PRESENT ILLNESS This is a 49-year-old female who was recently hospitalized October 21 through the for diverticulitis with abscess formation. She was discharged home with IV Invanz and followed by Dr. Collins. No surgical intervention was done at that time. Patient states that she has been in contact with Dr. Collins over the phone. She has been on IV antibiotics and has not missed any doses. She states she has had increasing pain that's significantly worse to the left lower quadrant that goes across her lower abdomen and into her back. On er 16, patient underwent an outpatient CAT scan with contrast of the abdomen and pelvis which revealed persistent changes of acute diverticulitis involving the mid to distal sigmoid colon. Severe inflammatory changes seen and appears to be an intramural abscess measuring 3.3 cm. Likely there are multiple additional small intramural or. Diverticular abscesses ranging in size from 1.7-2.3 cm. Gallbladder hydrops. She came into [facility] emergency center for evaluation. She was found to be afebrile, heart rate 90, blood pressure 139/89, pulse ox 96% on room air. EKG was a sinus rhythm with sinus arrhythmia, no acute ST changes. WBC 19.2, hemoglobin 14.5, electrolytes normal, creatinine 0.49. C-reactive protein 145.3. Liver function tests normal. Urinalysis cloudy, blood moderate, leukoesterase small. Chest x-ray reveals mild bilateral subsegmental atelectasis. Normal heart. KUB revealed possible calcified gallstone unchanged. Non-acute abdomen. Ultrasound of the left lower extremity is negative for DVT. Patient admitted under the care of Dr. Drew. She is currently on vancomycin and Zosyn will be added. Consult in place with Dr. Collins. Patient is currently nothing by mouth status, blood culture has been obtained. 11/02: Patient is resting comfortably in bed without any acute distress. Patient states that she is any increased pain in her diet has been advanced from clear liquids to full liquids. She is tolerating with no nausea or vomiting. Patient has had a bowel movement without any blood noted. Patient is afebrile, heart rate 75, respiration 20, blood pressure 130/76 pulse ox 96% on room air. CBC 11.5, hemoglobin 11.8, potassium is 3.4. 11/03: Patient is found ambulatory in room without any difficulties. Patient has had no bowel movements without any blood or pain. Patient is tolerating a low- fat diet and low fiber without any difficulties. Patient denies any nausea vomiting or pain at this time. Patient has been afebrile. Heart rate 60, respirations 18, blood pressure 1 3544, 97% on room air. 11/04: Patient states that her abdominal pain is much improved. Her abdomen is soft with very mild tenderness to the left lower quadrant. Plan is for Invanz for the next 2 weeks as an outpatient arranged by Dr. Collins. corporate training manager is making discharge planning arrangements. Patient has been afebrile, heart rate 62, blood pressure 142/91, pulse ox 96% on room air. Repeat blood work reveals a CBC 10.2, hemoglobin 11.3, platelet count 411. Creatinine 0.81. The patient is cleared medically for discharge home. REVIEW OF SYSTEMS Constitutional: No fever, no chills, no night sweats. No weight change. Denies generalized fatigue and malaise. No daytime sleepiness. EENT: No headache. No blurred vision or double vision, no loss of vision. No dizziness. No nasal drainage or congestion. No epistaxis. No sore throat. Lungs: No shortness of breath, cough, no sputum production. No wheezing. Cardiovascular: No chest pain, no lower extremity edema. No palpitations. No paroxysmal nocturnal dyspnea. No orthopnea. No lightheadedness or dizziness. No syncopal episodes. Abdominal: Denies abdominal pain. No nausea, vomiting. No diarrhea. No constipation. No bloody or tarry stools. Denies loss of appetite. Genitourinary: Denies dysuria, frequency, urgency. No urinary retention. Musculoskeletal: No myalgias. No muscle weakness, no gait dysfunction, no frequent falls. No back pain. No neck pain. Integumentary: No wounds, no lesions. No rash or pruritus. No unusual brui sing. No change in hair or nails. Neurologic: No aphasia. No facial droop. No change in mentation. No head injury. No headache. No paralysis. No paresthesia. Psychiatric: No depression. No anxiety. No mood swings. Endocrine: No abnormal blood sugars. No weight change. PHYSICAL EXAMINATION Gen: This is a 49-year-old female. Patient is resting in bed and annalise ears to be slightly comfortable but in no acute distress. No respiratory distress noted. HEENT: Head is atraumatic, normocephalic. Pupils equal, round. Sclerae is anicteric. NECK: Supple. No JVD. No lymphadenopathy. No thyromegaly. LUNGS: Clear to auscultation. No wheezes or rhonchi. No intercostal retractions. HEART: Regular rate and rhythm. No murmur. ABDOMEN: Soft. Bowel sounds are present. No masses. Very mild Left lower quadrant tenderness. EXTREMITIES: No pedal edema. No calf tenderness. Dorsalis pedis +2 bilaterally. NEUROLOGICAL: Patient is awake, alert and oriented x3. Cranial nerves 2 through 12 are grossly intact. ASSESSMENT AND PLAN 1. Acute diverticular abscesses. Continue Zosyn. Consult with Dr. Dennis zaidi. Plan is for Invanz for 2 weeks at home. 2. Hydropic gallbladder with gallbladder neck calculus. 3. Hepatomegaly. 4. Adenoma of the left adrenal gland, recommend follow-up in 6 months. 5. Hypokalemia. Repeat labs in the morning. 6. DVT prophylaxis. Heparin subcu. 7. GI prophylaxis. Protonix. Discharge plan: home with home care and IV antibiotics. Impression and plan of care have been directed as dictated by the signing physician. Siobhan Novak nurse practitioner acting as scribe for signing physician. Objective - Vital Signs Vital signs: Vital Signs Temp 98.5 F 11/05/19 05:20 Pulse 62 11/05/19 05:20 Resp 16 11/05/19 05:20 BP 142/91 11/05/19 05:20 Pulse Ox 96 11/05/19 05:20 Intake & Output 11/04/19 11/05/19 11/05/19 18:59 06:59 18:59 Intake Total 500 Balance 500 Intake: Oral 500 Other: Voiding Method Toilet # Voids 4 2 - Labs CBC & Chem 7: 11/05/19 03:18 11/05/19 03:18 Labs: Abnormal Lab Results - Last 24 Hours (Table) 11/05/19 Range/Units 03:18 Hgb 11.3 L (11.4-16.0) gm/dL MCHC 30.9 L (31.0-37.0) g/dL Microbiology - Last 24 Hours (Table) 11/01/19 20:27 Blood Culture - Preliminary Blood No Growth after 72 hours
[2019-11-05] MEDS ORDERED: ERTAPENEM 1 GM in SODIUM CHLORIDE 0.9% 50 ML IVPB STA (11:37)
[2019-11-05 11:55] VITALS: BP 159/85; PULSE 60; TEMP 97.6
--- NOTE | 2019-11-05 13:48 | P.DS ---
<Guera Juarez - Last Filed: 11/05/19 13:44> Providers Expected date of discharge: 11/05/19 Hospital Course: Discharge diagnosis 1. Acute diverticulitis of the mid to distal sigmoid colon with intramural abscess and multiple additional small intramural or peridiverticular abscesses 2. Gallbladder hydrops with 1.6 cm gallstone in the neck of the gallbladder 3. History of diverticulosis Hospital course This is a 49-year-old female with a known history of diverticulosis, colon polyps and last colonoscopy in August 2018. Patient was just recently hospitalized and [facility] for diverticulitis with abscess and had been discharged on 10/26/2019 with IV Invanz. Also on that admission her CAT scan had revealed hydropic gallbladder with 1.6 cm gallbladder neck calculus. Patient reports that she had been taking the antibiotics daily as prescribed. She reports that she started having increasing left lower quadrant abdominal pain and not feeling well. The pain became increasingly sharp and she rates it 7 out of 10. Patient reports that the left lower quadrant pain radiated to the mid lower abdomen as well as to the left side of her back. She had a computed tomography scan of the abdomen and pelvis done on 10/31/2019 that did show persistent changes of acute diverticulitis involving the mid to distal sigmoid colon. Severe inflammatory changes seen and again appears to be a intramural abscess measuring 3.3 cm. There is also likely multiple additional small intramural or peridiverticular abscesses. No evidence of perforation. Patient was on IV antibiotics per infectious disease. Her pain resolved. She tolerated advancement of diet. She's had regular bowel movements. She has been up and ambulating. She is afebrile. White count normalized. And she is stable for discharge to home. She will continue IV antibiotics per ID recommendations. Physician Toll Lineman note has been reviewed by physician. Signing provider agrees with the documented findings, assessment, and plan of care. Patient Condition at Discharge: Stable Plan - Discharge Summary New Discharge Prescriptions: New Ertapenem [INVanz] 1 gm IVPB Q24H #14 bag Continue Acetaminophen Tab [Tylenol] 650 mg PO Q4-6H PRN PRN Reason: Pain Discontinued Ertapenem [INVanz] 1 gm IVPB Q24H #12 bag Discharge Medication List Acetaminophen Tab [Tylenol] 650 mg PO Q4-6H PRN 11/01/19 [History] Ertapenem [INVanz] 1 gm IVPB Q24H #14 bag 11/05/19 [Rx] Follow up Appointment(s)/Referral(s): Joseph Drew MD [Medical Doctor] - 11/07/19 2:45 pm Joann Renee MD [Primary Care Provider] - 11[facility]13/19 10:[facility] - 1 Week [facility], [REFERRING] - 1 Week Marcia Collins MD [STAFF PHYSICIAN] - 11/13/19 9:15 am Patient Instructions/Handouts: Ertapenem (By injection), Diverticulitis (DC), Low Fiber Diet (DC) Activity/Diet/Wound Care/Special Instructions: Diet: low fiber Activity: Very light activity until you are reevaluated at your follow up appointment with your surgeon Discharge Disposition: HOME WITH HOME HEALTH SERVICES <Joseph Drew - Last Filed: 11/05/19 16:04> Providers Date of admission: 11/01/19 21:29 Attending physician: Joseph Drew Consults: 11/01/19 22:53 Consult Physician Stat Consulting Provider: Marcia Collins Consult Reason/Comments: diverticulitis with abscess Do you want consulting provider notified?: Yes 11/02/19 08:10 Consult Physician Routine Consulting Provider: Hi Yu Consult Reason/Comments: medical management Do you want consulting provider notified?: Yes Primary care physician: Joann Renee [facility] Course: As above. Patient hospitalized for failure of outpatient medical therapy. Patient has done quite well since admission. She is now afebrile and has no complaints of pain currently. Will plan discharge. Follow-up in the office later this week. IV antibiotics per infectious disease already arranged. Anticipate repeat CAT scan 2-3 weeks.
--- NOTE | 2019-11-05 14:52 | PN ---
PROGRESS NOTE DATE OF SERVICE: 11/05/2019 REASON FOR FOLLOWUP: Abdominal diverticulitis with intramural abscess. INTERVAL HISTORY: Patient is currently afebrile. The patient is feeling better. Breathing comfortably. The patient denies having any chest pain. No shortness of breath, no cough. No nausea, no vomiting. Abdominal pain is currently controlled, no diarrhea. PHYSICAL EXAMINATION: Blood pressure is 159/85 with a pulse of 60, temperature is 97.6. She is 95% on room air. General description is a middle-aged female lying in bed, in no distress. RESPIRATORY SYSTEM: Unlabored breathing, clear to auscultation anteriorly. HEART: S1, S2. Regular rate and rhythm. ABDOMEN: Soft, no tenderness. EXTREMITIES: No edema of the feet. LABS: Hemoglobin 11.8, white count 10.2, creatinine 0.81. DIAGNOSTIC IMPRESSION AND PLAN: Patient with acute diverticulitis with an intramural abscess, admitted in the hospital with worsening abdominal pain. Patient has been responding to Zosyn and transition back to Invanz 1 g daily for 2 weeks with a repeat CT of abdomen and pelvis on November 18 and re-evaluation at that point. Questions and concerns were answered. MMODL / IJN: [id number] /
[2019-11-06] MEDS ORDERED: PANTOPRAZOLE 40 MG TABLET PO SCH (09:00)
== END 2019-11-05 15:54 | disposition home health service (06) | DRG 392 ==
LOC: EC 18:23 → 4SSUR 21:29 → 6PED 11-02 08:40 → 6NMEDSUR 11-04 21:47
PROVIDERS: ADMIT Surgery; ATTEND Surgery
DX: K57.20 Diverticulitis of large intestine with perforation and abscess without bleeding (principal); K82.1 Hydrops of gallbladder; J98.11 Atelectasis; E87.6 Hypokalemia; K80.20 Calculus of gallbladder without cholecystitis without obstruction; D35.02 Benign neoplasm of left adrenal gland; R16.0 Hepatomegaly, not elsewhere classified; Z20.828 Contact with and (suspected) exposure to other viral communicable diseases; Z87.891 Personal history of nicotine dependence; Z98.890 Other specified postprocedural states; Z82.3 Family history of stroke; Z80.0 Family history of malignant neoplasm of digestive organs; Z80.8 Family history of malignant neoplasm of other organs or systems; Z86.010 Personal history of colon polyps
CPT/HCPCS: 36415; 71046; 74018; 74177; 80048; 80053; 80202; 81001; 82565; 83605; 83690; 85025; 85027; 86140; 87040; 93005; 96361; 96365; 96366; 96367; 96375; 96376; 99285

== ENCOUNTER → 2019-11-16 | Outpatient (CLI) | payer OTHER ==
[2019-11-16 12:29] LABS: African American GFR (CKD) >90 (>60 ml/min/1.73 sqM); Blood Urea Nitrogen 14 mg/dL (7-17); Non-African American GFR(CKD) >90 (>60 ml/min/1.73 sqM)
--- NOTE | 2019-11-16 14:21 | CT ---
EXAMINATION TYPE: CT pelvis w con DATE OF EXAM: 11/16/2019 COMPARISON: CT abdomen and pelvis October 31, 2019 HISTORY: Diverticulitis of large intestine CT DLP: 891.9 mGycm Automated exposure control for dose reduction was used. CONTRAST: CT pelvis Performed with oral and with IV Contrast, patient injected with 100 mL of Isovue 300. FINDINGS: Oral contrast only reaches level of cecum making evaluation of distal bowel slightly suboptimal. No s uspicious small or large bowel dilatation. Persistence of diverticula in the sigmoid colon. There is poor distention with moderate wall thickening. There is mild to moderate ill-defined fluid and fat st randing remaining present. Degree of surrounding fluid and fat stranding and peripheral most recent C T. Persistent areas of linear density extends to adjacent bowel loops, cannot exclude fistulous commu nication. No free air in poorly distended bladder. Uterus anteverted and shape extends to right of midline. No central air. Normal-sized right ovary adn exal image 41 redemonstrated. Left ovary not clearly seen. No new free fluid in pelvis, trace free fluid axial image 44 remains present. No free air noted. No g reater than 1 cm pelvic adenopathy. Subcutaneous anterior nodules or product of injection granulomas redemonstrated. Visualized osseous structures are intact. IMPRESSION: Improving findings related to acute diverticulitis versus most recent CT. No persistent a djacent focal fluid collection or abscess on current study. Cannot exclude chronic sinus tracts or fi stula to adjacent structures including small bowel loops and outer margin of the uterus.
== END | disposition home or self-care (01) ==
LOC: RADCTMAIN 11:49
PROVIDERS: ATTEND Surgery
DX: K57.32 Diverticulitis of large intestine without perforation or abscess without bleeding (principal)
CPT/HCPCS: 82565; 84520; 72193; 36415; Q9967

== ENCOUNTER → 2019-12-18 | Outpatient (CLI) | payer OTHER ==
--- NOTE | 2019-12-18 18:21 | CT ---
EXAMINATION TYPE: CT abdomen pelvis w con DATE OF EXAM: 12/18/2019 COMPARISON: CT pelvis 11/16/2019. CT abdomen pelvis 10/31/2019. HISTORY: Diverticulitis CT DLP: 1434.9 mGycm Automated exposure control for dose reduction was used. TECHNIQUE: Helical acquisition of images was performed from the lung bases through the pelvis. CONTRAST: Performed with Oral Contrast and with IV Contrast, patient injected with 100 mL of Isovue 300. FINDINGS: LUNG BASES: No pericardial or pleural effusion. LIVER: Normal. BILIARY SYSTEM: Redemonstrated cholelithiasis within the gallbladder neck, and gallbladder hydrops. N o intrahepatic or extrahepatic biliary ductal dilatation. Axial PANCREAS: Normal. SPLEEN: Normal. ADRENALS: 1.6 cm indeterminate left adrenal nodule. Right adrenal gland normal. KIDNEYS: Right kidney normal. There is a redemonstrated 1.4 cm calculus within the left renal pelvis with no significant hydronephrosis. BOWEL: Contrast reaches the level of the cecum. Normal appendix. There is no evidence of obstruction . Persistent thickened appearance of the sigmoid colon with diverticulosis. The inflammatory strandin g about the sigmoid colon is moderately decreased versus 11/16/2019 CT comparison. There is loss of fa t plane and persistent linear density extending to the left uterus and adjacent small bowel loop with somewhat tethered appearance of the small bowel (7:50-54). There is no oral contrast within the deena cent small bowel seen communicating within this linear extension to definitively suggest fistula. PERITONEUM: No pneumoperitoneum. No free fluid. LYMPH NODES: No lymphadenopathy. PELVIS: Normal urinary bladder normal right ovary. Left ovary is not discretely visualized. Loss of f at plane between the sigmoid colon and uterus as described above. VASCULATURE: No abdominal aortic aneurysm. MUSCULOSKELETAL: No acute osseous abnormality. IMPRESSION: 1. Redemonstrated interval improvement of acute diverticulitis of the sigmoid colon. Moderately decr eased inflammatory stranding versus 11/16/2019 CT, without complete resolution. Persistent loss of fat plane with the left uterus, and extension to adjacent small bowel loops with somewhat tethered appea hung. No evidence of bowel obstruction. Differential includes scarring, sinus tract, and fistula for mation. 2. Cholelithiasis with gallbladder hydrops.
== END | disposition home or self-care (01) ==
LOC: RADCTMAIN 12-14 15:23
PROVIDERS: ATTEND Surgery
DX: K57.32 Diverticulitis of large intestine without perforation or abscess without bleeding (principal); K80.20 Calculus of gallbladder without cholecystitis without obstruction; K82.1 Hydrops of gallbladder; N85.8 Other specified noninflammatory disorders of uterus
CPT/HCPCS: 74177; Q9967

== ENCOUNTER 2020-01-25 06:58 | Day surgery (SDC) | payer OTHER ==
[2020-01-23 15:15] VITALS: BMI 29.4
--- NOTE | 2020-01-24 17:16 | P.GSHP ---
History of Present Illness H&P Date: 01/24/20 Chief Complaint: chronic cholecystitis Patient well-known to our service. Was hospitalized twice in the last few months with bad diverticulitis. Patient also on CAT scan found to have a moderate size gallstone impacted in the gallbladder neck with hydrops. Has minimal if any right upper quadrant symptoms however. No change in the color of her skin urine or stool. Recently seen at [facility] for possible laparoscopic sigmoid colectomy. They are requesting her gallbladder to be removed prior to definitive colectomy. Patient doing better as it pertains to the lower abdominal pain. She is considering holding off on elective resection. Past Medical History Past Medical History: No Reported History Additional Past Medical History / Comment(s): hx of diverticulits and abscess History of Any Multi-Drug Resistant Organisms: None Reported Past Surgical History: No Surgical Hx Reported Additional Past Surgical History / Comment(s): surgery for ectopic Past Anesthesia/Blood Transfusion Reactions: No Reported Reaction Smoking Status: Current every day smoker - Past Family History Mother Family Medical History: Cancer Additional Family Medical History / Comment(s): stomach Brother(s) Family Medical History: Cancer Additional Family Medical History / Comment(s): brain cancer Father Family Medical History: CVA/TIA Medications and Allergies Home Medications Medication Instructions Recorded Confirmed Type No Known Home Medications 01/23/20 01/23/20 History Allergies Allergy/AdvReac Type Severity Reaction Status Date / Time No Known Allergies Allergy Verified 01/23/20 15:10 Surgical - Exam Physical exam: General: Well-developed, well-nourished HEENT: Normocephalic, sclerae nonicteric Abdomen: Nontender, nondistended Extremities: No edema Neuro: Alert and oriented Assessment and Plan (1) Chronic cholecystitis Narrative/Plan: Options reviewed with the patient in the office and also by phone. We'll pro ceed with laparoscopic, possible open cholecystectomy 01/24. Risks of bleeding, infection, bile leak, bile duct injury, retained common bile duct stone, trocar injury, conversion to an open procedure, hernia, anesthesia related complications were reviewed. The patient understands and wishes to proceed. Status: Acute Code(s): K81.1 - CHRONIC CHOLECYSTITIS SNOMED Code(s): 55250439
[~2020-01-25 06:58] MED LIST changes: +ACETAMINOPHEN TAB 500 MG TAB PO PRN; +DEXAMETHASONE SOD PHOSPHATE 4 MG/ML 1 ML VIAL IV ONE; +HEPARIN SODIUM,PORCINE 5,000 UNIT/ML 1 ML VIAL SQ PRN; +HYDROmorphone 0.5 MG/0.5 ML SYRINGE IVP PRN; -LIDOCAINE 1% 20 ML VIAL (10MG/ML) FOR IV START INTRADERMA PRN; +MIDAZOLAM 2 MG/2 ML VIAL IV PRN; +ONDANSETRON 4 MG/2 ML VIAL IVP ONE; +SCOPOLAMINE 1.5MG/72HR PATCH TRANSDERM ONE
[2020-01-25] MEDS ORDERED: KETOROLAC 15 MG/ML 1 ML VIAL ONE (07:40)
[2020-01-25] MEDS ORDERED: MIDAZOLAM 2 MG/2 ML VIAL ONE (07:40)
[2020-01-25] MEDS ORDERED: PROPOFOL 10 MG/ML 20 ML VIAL IV ONE (07:40)
[2020-01-25] MEDS ORDERED: HYDROmorphone (PF) 1 MG/ML ONE (07:40)
[2020-01-25] MEDS ORDERED: NEOSTIGMINE 1 MG/ML 10 ML VIAL ONE (07:40)
[2020-01-25] MEDS ORDERED: LIDOCAINE 1% INJ 10MG/ML (20 ML MDV) ONE (07:40)
[2020-01-25] MEDS ORDERED: PHENYLEPHRINE 10 MG/ML VIAL ONE (07:40)
[2020-01-25] MEDS ORDERED: ROCURONIUM 10 MG/ML (10 ML VIAL) IV ONE (07:40)
[2020-01-25] MEDS ORDERED: GLYCOPYRROLATE 0.2 MG/ML 2 ML VIAL ONE (07:40)
[2020-01-25] MEDS ORDERED: fentaNYL (PF) 50 MCG/ML 2 ML AMP ONE (07:40)
[2020-01-25] MEDS ORDERED: BUPIVACAINE (PF) 0.25% 30 ML VIAL SQ ONE ×2 (08:17)
--- NOTE | 2020-01-25 09:16 | P.OP ---
Date of Procedure: 01/25/20 Procedure(s) Performed: PREOPERATIVE DIAGNOSIS: Chronic cholecystitis POSTOPERATIVE DIAGNOSIS: Hydrops of the gallbladder PROCEDURE: Laparoscopic cholecystectomy SURGEON: Rajendra EBL: Minimal see anesthesia record ANESTHESIA: Gen. COMPLICATIONS: None OPERATIVE PROCEDURE: The patient was brought and placed on the operating room table in the supine position. The patient was placed under general anesthesia at that time. The abdomen was prepped and draped in the usual sterile fashion. A small vertical infraumbilical incision was made. The fascia was grasped with the Jerome forceps. The fascia was retracted anteriorly. The Veress needle was advanced into the peritoneal cavity. The saline drop test was abnormal. For that reason a 5 mm optical trocar was used to enter the peritoneal cavity in the right upper quadrant. Full insufflation took place up to 15 mm without difficulty. An additional 5 mm lateral right upper quadrant trocar was placed. The umbilical 5 mm trocar was placed above and area of omental adhesions were evident there. We inspected the pelvis to evaluate the degree of inflammatory changes from recent diverticulitis. I was not able to visualize the pelvis well because of the omental adhesions to the lower abdominal wall. The camera was reintroduced through the umbilical site. A 12 mm trocar was advanced into the epigastric incision site. The gallbladder was inspected. It was quite tense. Chronic wall thickening was noted. An opening was made in the gallbladder to allow for better maneuverability. Clear fluid was evacuated. The gallbladder was retracted superiorly and laterally. The peritoneum overlying the infundibulum was bluntly dissected. The patient's cystic duct was visualized. The junction between the cystic duct common and hepatic duct was identified. The cystic duct was then divided after placement of 3 12 mm clips on the patient's side and one on the specimen side. The cystic artery was identified and clipped as well. A small vessel was seen along the gallbladder fossa and clipped as well. The gallbladder was then removed from the liver bed using electrocautery. The gallbladder was then removed from the epigastric trocar site with an Endo Catch bag. In doing so the epigastric incision required some extension. The gallbladder fossa was irrigated with saline. There was no evidence of any bleeding or biliary drainage seen. The fascia at the 12 millimeter site was closed using a Hunter-Silvestre 0 Vicryl stitch. The troc hars were then removed. The skin at all 4 sites was closed using a 4-0 Monocryl stitch. Skin glue was utilized on the incision sites. At the end of this procedure the sponge and needle counts were correct. DISPOSITION: Stable to the recovery room
[2020-01-25 09:20] VITALS: TEMP 99.2
[2020-01-25] MEDS ORDERED: LACTATED RINGERS 1,000 ML IV ONE (09:47)
[2020-01-25 11:09] VITALS: BP 122/56; PULSE 86; RESP 14
[2020-01-25] MEDS ORDERED: ACETAMINOPHEN TAB 325 MG TAB PO SCH (12:00)
[2020-01-25] MEDS ORDERED: IBUPROFEN 600 MG TAB PO SCH (15:00)
== END 2020-01-25 11:46 | disposition home or self-care (01) ==
LOC: OR 06:58
PROVIDERS: ATTEND Surgery
DX: K80.12 Calculus of gallbladder with acute and chronic cholecystitis without obstruction (principal); K82.1 Hydrops of gallbladder; K66.0 Peritoneal adhesions (postprocedural) (postinfection); K57.90 Diverticulosis of intestine, part unspecified, without perforation or abscess without bleeding; F17.200 Nicotine dependence, unspecified, uncomplicated; Z87.19 Personal history of other diseases of the digestive system; Z80.0 Family history of malignant neoplasm of digestive organs; Z80.8 Family history of malignant neoplasm of other organs or systems; Z82.3 Family history of stroke
CPT/HCPCS: 47562; 88304; J2250; J1644; J1100; J2370; J2710; J0690; J2405; J2001; J3010; J1170; J1885; J2704

== ENCOUNTER → 2020-04-17 | Outpatient (CLI) | payer OTHER ==
--- NOTE | 2020-04-18 11:19 | MM ---
Reason for exam: screening (asymptomatic). Last mammogram was performed 1 year and 8 months ago. History: Patient is postmenopausal. Physical Findings: A clinical breast exam by your physician is recommended on an annual basis and results should be correlated with mammographic findings. MG Screening Mammo w CAD Bilateral CC and MLO view(s) were taken. Prior study comparison: August 23, 2018, bilateral MG screening mammo w CAD. June 05, 2014, bilateral MG screening mammo w CAD. Finding: There is a typically benign 4 mm equal density (isodense), circumscribed round mass located 4 cm from the nipple in the left breast, enlarged from 2019. There is a chronic nodularity bilaterally. New finding since August 23, 2018. ASSESSMENT: Incomplete: need additional imaging evaluation, BI-RAD 0 RECOMMENDATION: Ultrasound of the left breast. [facility] will attempt to contact patient to return for ultrasound.
== END ==
LOC: RADMAMWWP 16:30
PROVIDERS: ATTEND General Practice
DX: Z12.31 Encounter for screening mammogram for malignant neoplasm of breast (principal); Z78.0 Asymptomatic menopausal state
CPT/HCPCS: 77067

== ENCOUNTER → 2020-04-22 | Outpatient (CLI) | payer OTHER ==
--- NOTE | 2020-04-22 10:12 | USB ---
Reason for exam: additional evaluation requested from abnormal screening. History: Patient is postmenopausal. Physical Findings: Nurse did not find any significant physical abnormalities on exam. US Breast Workup Limited LT Left limited breast ultrasound including focal area of concern, retroareolar and axilla demonstrates a 0.4 x 0.4 x 0.2cm round, cystic lesion too small to characterize at 6 o'clock. These results were verbally communicated with the patient and result sheet given to the patient on 04/22/20. ASSESSMENT: Probably benign, BI-RAD 3 RECOMMENDATION: Follow-up diagnostic mammogram of the left breast in 6 months.
== END ==
LOC: RADUSWWP 07:30
PROVIDERS: ATTEND General Practice
DX: R92.8 Other abnormal and inconclusive findings on diagnostic imaging of breast (principal); Z78.0 Asymptomatic menopausal state

== ENCOUNTER → 2020-10-30 | Outpatient (CLI) | payer OTHER ==
--- NOTE | 2020-10-30 12:01 | MM ---
Reason for exam: follow-up at short interval from prior study. Last mammogram was performed 6 months ago. History: Patient is postmenopausal. Physical Findings: Nurse did not find any significant physical abnormalities on exam. MG Diagnostic Mammo LT w CAD CC, MLO, and XCCL view(s) were taken of the left breast. Prior study comparison: April 17, 2020, bilateral MG screening mammo w CAD. August 23, 2018, bilateral MG screening mammo w CAD. There are scattered fibroglandular densities. Stable 4mm isodense nodule subareolar left breast for 6 months. Likely cyst on prior ultrasound. Additional follow up at patient's annual exam recommended. These results were verbally communicated with the patient and result sheet given to the patient on 10/30/20. ASSESSMENT: Probably benign, BI-RAD 3 RECOMMENDATION: Follow-up diagnostic mammogram of both breasts in 6 months.
== END | disposition home or self-care (01) ==
LOC: RADMAMWWP 10:35
PROVIDERS: ATTEND Family Medicine
DX: N63.20 Unspecified lump in the left breast, unspecified quadrant (principal); N64.89 Other specified disorders of breast; Z78.0 Asymptomatic menopausal state
CPT/HCPCS: 77065

== ENCOUNTER → 2021-05-07 | Outpatient (CLI) | payer BC, OTHER ==
--- NOTE | 2021-05-07 11:06 | MM ---
Reason for exam: additional evaluation requested from prior study. Last mammogram was performed 6 months ago. History: Patient is postmenopausal. Physical Findings: A clinical breast exam by your physician is recommended on an annual basis and results should be correlated with mammographic findings. MG Diagnostic Mammo w CAD ANGIE Bilateral CC and MLO view(s) were taken. Prior study comparison: October 30, 2020, left breast MG diagnostic mammo LT w CAD. April 17, 2020, bilateral MG screening mammo w CAD. There are scattered fibroglandular densities. There is chronic nodularity in the right breast. Focal asymmetry left breast, stable. Previous left nodule not apparent. No significant changes when compared with prior studies. ASSESSMENT: Benign, BI-RAD 2 RECOMMENDATION: Routine screening mammogram of both breasts in 1 year.
== END | disposition home or self-care (01) ==
LOC: RADMAMWWP 10:09
PROVIDERS: ATTEND Family Medicine
DX: R92.8 Other abnormal and inconclusive findings on diagnostic imaging of breast (principal); Z78.0 Asymptomatic menopausal state
CPT/HCPCS: 77066

== ENCOUNTER → 2022-05-10 | Outpatient (CLI) | payer BC, OTHER ==
--- NOTE | 2022-05-11 06:11 | MM ---
Reason for Exam: Screening (asymptomatic). Last screening mammogram was performed 12 month(s) ago. Patient History: Menarche at age 12. First Full-Term at age 20. Postmenopausal. Risk Values: Chani 5 year model risk: 1.0%. NCI Lifetime model risk: 7.7%. Prior Study Comparison: 04/17/2020 Bilateral Screening Mammogram, [facility]. 10/30/2020 Left Diagnostic Mammogram, [facility]. 05/07/2021 Bilateral Diagnostic Mammogram, [facility]. Tissue Density: There are scattered fibroglandular densities. Analyzed By CAD. Overall Assessment: Benign, BI-RAD 2 Management: Screening Mammogram of both breasts in 1 year. Electronically signed and approved by: Christiano Lima M.D.
== END | disposition home or self-care (01) ==
LOC: RADMAMWWP 16:05
PROVIDERS: ATTEND Family Medicine
DX: Z12.31 Encounter for screening mammogram for malignant neoplasm of breast (principal); Z78.0 Asymptomatic menopausal state
CPT/HCPCS: 77067